=== PATIENT | female | born 1965 | race Caucasian/White ===

== ENCOUNTER 2024-03-16 09:13 | Inpatient (IN) | payer BC ==
--- NOTE | 2024-03-16 09:41 | ED ---
General Adult HPI - General Chief complaint: Neuro Symptoms/Deficit Stated complaint: Poss stroke Time Seen by Provider: 03/16/24 09:21 Source: patient, RN notes reviewed, old records reviewed Mode of arrival: wheelchair Limitations: no limitations - History of Present Illness Initial comments: 58-year-old female presenting for evaluation of unsteady gait, left hand numbness and slurred speech. Symptoms began at midnight when the patient woke to go to the bathroom. Patient presents at 915 to the emergency department. Her symptoms began with unsteady gait when she went to the bathroom. When she woke at 8 AM she had noticed that her vision was off and her states that she had some slurred speech which is improved but still present. No prior history of CVA. - Related Data Allergies Allergy/AdvReac Type Severity Reaction Status Date / Time Penicillins AdvReac Unknown Verified 03/16/24 09:21 Review of Systems ROS Statement: Those systems with pertinent positive or pertinent negative responses have been documented in the HPI. ROS Other: All systems not noted in ROS Statement are negative. Past Medical History Past Surgical History: Pacemaker Smoking Status: Never smoker Past Alcohol Use History: Occasional Past Drug Use History: None Reported General Exam Limitations: no limitations General appearance: alert, in no apparent distress Head exam: Present: atraumatic, normocephalic Eye exam: Present: PERRL, nystagmus (Vertical) Respiratory exam: Present: normal lung sounds bilaterally. Absent: respiratory distress Cardiovascular Exam: Present: regular rate, normal rhythm GI/Abdominal exam: Present: soft. Absent: distended, tenderness Extremities exam: Present: normal inspection, normal capillary refill Neurological exam: Present: alert, oriented X3, motor sensory deficit (Patient has mild dysarthria, she has left hand numbness, left upper extremity ataxia with finger-nose testing, left lower extremity ataxia with [id number].), other (NIH of 4) Psychiatric exam: Present: anxious Skin exam: Present: warm, dry, intact. Absent: cyanosis, diaphoretic Course Vital Signs 03/16/24 03/16/24 03/16/24 09:18 09:45 10:00 Temperature 98.5 F Pulse Rate 89 Respiratory 18 20 Rate Blood Pressure 155/101 156/91 173/97 O2 Sat by Pulse 97 Oximetry 03/16/24 10:11 Temperature Pulse Rate 83 Respiratory 20 Rate Blood Pressure 148/98 O2 Sat by Pulse 97 Oximetry Medical Decision Making - Medical Decision Making Was pt. sent in by a medical professional or institution (, [facility], [employer], urgent care, hospital, or senior living...) When possible be specific @ -No Did you speak to anyone other than the patient for history (EMS, parent, family, police, friend...)? What history was obtained from this source @ -No Did you review nursing and triage notes (agree or disagree)? Why? @ -I reviewed and agree with nursing and triage notes Were old charts reviewed (outside hosp., previous admission, EMS record, old EKG, old radiological studies, urgent care reports/EKG's, senior living records)? Report findings @ -No old charts were reviewed Differential CVA Ischemic stroke, hemorrhagic stroke, brain tumor, atypical migraine, Wernicke's encephalopathy, seizure, multiple sclerosis, meningitis, encephalitis, hypoglycemia, Guillain-Rock, electrolytes disturbance, myasthenia gravis.... This is not meant to be an all-inclusive list EKG interpreted by me (3pts min.). @ -EKG: Ventricular rate of 82, SC interval 279, QRS duration 140, QTc 442 ventricular pacer spikes X-rays interpreted by me (1pt min.). @ -Chest x-ray, no acute cardiopulmonary findings CT interpreted by me (1pt min.). @CT brain showing old lacunar infarct without intracranial hemorrhage or mass effect. CT angiography negative for acute stenosis or occlusion U/S interpreted by me (1pt. min.). @ -None done What testing was considered but not performed or refused? (CT, X-rays, U/S, labs)? Why? @ -None What meds were considered but not given or refused? Why? @ -None Did you discuss the management of the patient with other professionals (professionals i.e. , [facility], [employer], lab, RT, psych nurse, director social welfare, corn picker, teacher, budget officer, case assembler)? Give summary @ -Case discussed with Dr. Steinberg, at 0947, recommends aspirin, Brilinta, and statin. No tPA due to onset timing. No intervention due to low NIH. Case discussed with [facility], will admit Was smoking cessation discussed for >3mins.? @ -No Was critical care preformed (if so, how long)? @ -Yes, 35 minutes Were there social determinants of health that impacted care today? How? (Homelessness, low income, unemployed, alcoholism, drug addiction, transportation, low edu. Level, literacy, decrease access to med. care, intermediate, rehab)? @ -No Was there de-escalation of care discussed even if they declined (Discuss DNR or withdrawal of care, Hospice)? DNR status @ -No What co-morbidities impacted this encounter? (DM, HTN, Smoking, COPD, CAD, Cancer, CVA, ARF, Chemo, Hep., AIDS, mental health diagnosis, sleep apnea, morbid obesity)? @ -None Was patient admitted / discharged? Hospital course, mention meds given and route, prescriptions, significant lab abnormalities, going to OR and other pertinent info. @ -58-year-old female presenting with gait instability, vertical nystagmus, left arm numbness and ataxia, left leg ataxia. Initial NIH is 4. Patient is managed as a code stroke activation. She has normal laboratory testing. CT and CT angiography are ordered. Patient started on aspirin, Brilinta, statin. Admitted for further evaluation of acute stroke with neurology on consult. Undiagnosed new problem with uncertain prognosis? @ -No Drug Therapy requiring intensive monitoring for toxicity (Heparin, Nitro, Insulin, Cardizem)? @ -No Were any procedures done? @ -No Diagnosis/symptom? @ -CVA Acute, or Chronic, or Acute on Chronic? @Acute Uncomplicated (without systemic symptoms) or Complicated (systemic symptoms)? @ -Default Side effects of treatment? @ -No Exacerbation, Progression, or Severe Exacerbation? @ -No Poses a threat to life or bodily function? How? (Chest pain, USA, LA, pneumonia, PE, COPD, DKA, ARF, appy, cholecystitis, CVA, Diverticulitis, Homicidal, Suicidal, threat to staff... and all critical care pts) @ -[Yes, CVA - Lab Data Result diagrams: 03/16/24 09:44 03/16/24 09:44 Lab Results 03/16/24 03/16/24 03/16/24 Range/Units 09:44 09:44 09:44 WBC 10.7 H (3.8-10.6) k/uL RBC 5.16 (3.80-5.40) m/uL Hgb 14.3 (11.4-16.0) gm/dL Hct 45.9 (34.0-46.0) % MCV 89.0 (80.0-100.0) fL MCH 27.8 (25.0-35.0) pg MCHC 31.2 (31.0-37.0) g/dL RDW 13.8 (11.5-15.5) % Plt Count 484 H (150-450) k/uL MPV 7.4 Neutrophils % 71 % Lymphocytes % 17 % Monocytes % 6 % Eosinophils % 4 % Basophils % 1 % Neutrophils # 7.6 (1.3-7.7) k/uL Lymphocytes # 1.8 (1.0-4.8) k/uL Monocytes # 0.7 (0-1.0) k/uL Eosinophils # 0.4 (0-0.7) k/uL Basophils # 0.1 (0-0.2) k/uL PT 10.8 (10.0-12.5) sec INR 1.0 (<1.2) APTT 25.4 (22.0-30.0) sec Sodium 135 L (137-145) mmol/L Potassium 4.2 (3.5-5.1) mmol/L Chloride 105 (98-107) mmol/L Carbon Dioxide 26 (22-30) mmol/L Anion Gap 4 mmol/L BUN 13 (7-17) mg/dL Creatinine 0.76 (0.52-1.04) mg/dL Est GFR (CKD-EPI)AfAm >90 (>60 ml/min/1.73 sqM) Est GFR (CKD-EPI)NonAf 86 (>60 ml/min/1.73 sqM) Glucose 117 H (74-99) mg/dL Calcium 9.1 (8.4-10.2) mg/dL Total Bilirubin 0.7 (0.2-1.3) mg/dL AST 25 (14-36) U/L ALT 13 (4-34) U/L Alkaline Phosphatase 66 (38-126) U/L Creatine Kinase 35 (30-135) U/L Troponin I (0.000-0.034) ng/mL Total Protein 7.0 (6.3-8.2) g/dL Albumin 3.9 (3.5-5.0) g/dL 03/16/24 Range/Units 09:44 WBC (3.8-10.6) k/uL RBC (3.80-5.40) m/uL Hgb (11.4-16.0) gm/dL Hct (34.0-46.0) % MCV (80.0-100.0) fL MCH (25.0-35.0) pg MCHC (31.0-37.0) g/dL RDW (11.5-15.5) % Plt Count (150-450) k/uL MPV Neutrophils % % Lymphocytes % % Monocytes % % Eosinophils % % Basophils % % Neutrophils # (1.3-7.7) k/uL Lymphocytes # (1.0-4.8) k/uL Monocytes # (0-1.0) k/uL Eosinophils # (0-0.7) k/uL Basophils # (0-0.2) k/uL PT (10.0-12.5) sec INR (<1.2) APTT (22.0-30.0) sec Sodium (137-145) mmol/L Potassium (3.5-5.1) mmol/L Chloride (98-107) mmol/L Carbon Dioxide (22-30) mmol/L Anion Gap mmol/L BUN (7-17) mg/dL Creatinine (0.52-1.04) mg/dL Est GFR (CKD-EPI)AfAm (>60 ml/min/1.73 sqM) Est GFR (CKD-EPI)NonAf (>60 ml/min/1.73 sqM) Glucose (74-99) mg/dL Calcium (8.4-10.2) mg/dL Total Bilirubin (0.2-1.3) mg/dL AST (14-36) U/L ALT (4-34) U/L Alkaline Phosphatase (38-126) U/L Creatine Kinase (30-135) U/L Troponin I <0.012 (0.000-0.034) ng/mL Total Protein (6.3-8.2) g/dL Albumin (3.5-5.0) g/dL Critical Care Time Critical Care Time: Yes Total Critical Care Time: 35 Disposition Clinical Impression: Cerebrovascular accident (CVA) Disposition: ADMITTED IP TO THIS HOSP Condition: Stable Is patient prescribed a controlled substance at d/c from ED?: No Referrals: None,Stated [Primary Care Provider] - 1-2 days Time of Disposition: 10:43
[2024-03-16 09:58] LABS: Basophils # (A) 0.1 k/uL (0-0.2); Basophils % (A) 1 %; Eosinophils # (A) 0.4 k/uL (0-0.7); Eosinophils % (A) 4 %; HCT 45.9 % (34.0-46.0); HGB 14.3 gm/dL (11.4-16.0); Lymphocytes # (A) 1.8 k/uL (1.0-4.8); Lymphocytes % (A) 17 %; MCH 27.8 pg (25.0-35.0); MCHC 31.2 g/dL (31.0-37.0); Mean Platelet Volume 7.4; Monocytes # (A) 0.7 k/uL (0-1.0); Monocytes % (A) 6 %; Neutrophils # (A) 7.6 k/uL (1.3-7.7); Neutrophils % (A) 71 %; Platelet Count 484 k/uL (150-450); RBC 5.16 m/uL (3.80-5.40); RDW 13.8 % (11.5-15.5); WBC 10.7 k/uL (3.8-10.6)
[2024-03-16 10:03] LABS: Partial Thromboplastin Time 25.4 sec (22.0-30.0); Prothrombin Time 10.8 sec (10.0-12.5)
[2024-03-16 10:04] LABS: ALT 13 U/L (4-34); AST 25 U/L (14-36); African American GFR (CKD) >90 (>60 ml/min/1.73 sqM); Albumin 3.9 g/dL (3.5-5.0); Alkaline Phosphatase 66 U/L (38-126); Anion Gap 4 mmol/L; Blood Urea Nitrogen 13 mg/dL (7-17); Calcium 9.1 mg/dL (8.4-10.2); Carbon Dioxide 26 mmol/L (22-30); Chloride 105 mmol/L (98-107); Creatine Kinase 35 U/L (30-135); Glucose 117 mg/dL (74-99); Non-African American GFR(CKD) 86 (>60 ml/min/1.73 sqM); Potassium 4.2 mmol/L (3.5-5.1); Sodium 135 mmol/L (137-145); Total Bilirubin 0.7 mg/dL (0.2-1.3)
--- NOTE | 2024-03-16 10:09 | CT ---
EXAMINATION TYPE: CT brain wo con DATE OF EXAM: 03/16/2024 COMPARISON: None HISTORY: [id number] female unsteady gait, left side tingle and dysphagia TECHNIQUE: Examination was done in axial plane without intravenous contrast. Coronal and sagittal r econstructions performed. CT DLP: 1142.6 mGycm Automated exposure control for dose reduction was used. FINDINGS: There is no evidence of acute intracranial hemorrhage, acute ischemic changes, mass, mass-effect, or extra-axial fluid collection. There is no effacement of cerebral sulci or basal subarachnoid cister ns. There is no hydrocephalus. There is no midline shift. Ruiz-white matter distinction is preserv ed. Old lacunar infarct left basal ganglia. Partially empty sella incidentally noted. Some frothy layering fluid left maxillary sinus. Moderate mucosal thickening anterior right ethmoid a ir cells. Some frothy dependent opacification left sphenoid sinus. Mastoid air cells well pneumatized . Orbits and globes are intact. Normal variation hyperostosis frontalis interna. IMPRESSION: 1. Old lacunar infarct left basal ganglia. No acute intracranial abnormality seen. 2. Possible acute left maxillary and left sphenoid sinusitis. Correlate with symptoms.
--- NOTE | 2024-03-16 10:16 | CT ---
EXAMINATION TYPE: CT angio head neck DATE OF EXAM: 03/16/2024 COMPARISON: None HISTORY: 58-year-old female unsteady gait, left side tingle and dysphagia TECHNIQUE: Contiguous axial scanning of the head and neck performed with IV Contrast, patient injecte d with 65ml mL of Isovue 370. Coronal/sagittal reconstructions performed. 3-D reconstructions generat ed on a dedicated independent workstation. CT DLP: 616.2 mGycm Automated exposure control for dose reduction was used. FINDINGS: Neck: Partially visualized bilateral breast prostheses. Some pleural parenchymal scarring noted along the p eriphery of the right upper lung. Left anterior chest wall pacemaker generator. Bovine configuration to the aortic arch along with an aberrant direct takeoff of the left vertebral a rtery directly from the aortic arch. The right vertebral artery is dominant. Otherwise, both vertebral arteries are patent throughout the course. There is minimal atherosclerotic change at the right carotid bifurcation but no significant narrowing of the common or internal carotid arteries on either side by NASCET criteria. Head: Dominant right vertebral artery. Both vertebral and basilar arteries as well as the remainder of the posterior circulation is patent. Minimal prostatic calcifications of the bilateral carotid siphons but without any significant narrowi ng. Remainder of the anterior circulation is patent. No aneurysmal changes seen. Dural venous sinuses are patent. IMPRESSION: 1. NECK: WIDELY PATENT VERTEBRAL AND CAROTID ARTERIES OF THE NECK. 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 2. HEAD: No large vessel intracranial arterial occlusion, significant stenosis, or aneurysmal change is seen.
--- NOTE | 2024-03-16 10:32 | XR ---
EXAMINATION TYPE: XR chest 2V DATE OF EXAM: 03/16/2024 COMPARISON: None INDICATION: Altered mental status TECHNIQUE: Frontal and lateral views of the chest are obtained. FINDINGS: The heart size is normal. As maker overlies the left chest. The pulmonary vasculature is normal. The lungs are clear. IMPRESSION: 1. No acute pulmonary process.
[2024-03-16] MEDS: ASPIRIN 325 MG TAB PO STA (11:00)
[2024-03-16] MEDS ORDERED: CALCIUM CARBONATE 500 MG CHEWABLE PO PRN (13:16)
--- NOTE | 2024-03-16 14:00 | HP ---
HISTORY AND PHYSICAL CHIEF COMPLAINT: Weakness and unsteady gait, left hand numbness, slurred speech, and eye problems. HISTORY OF PRESENT ILLNESS: This is a 58-year-old woman with a past medical history of pacemaker, has recently moved to the area. The patient is complaining of unsteady gait and left hand numbness and slurred speech this morning, started midnight and the patient came to [facility], admitted for further evaluation and treatment. The patient had significant opsoclonus and is being admitted for further evaluation and treatment. Neurology consultation in progress. The initial evaluation, which I reviewed showed WBC 10.7, otherwise CAT scan of the brain showed old lacunar infarct of the left basal ganglia and possible left acute maxillary sinusitis also. CT angiography again, which was reviewed personally by me showed widely patent multiple carotid arteries, variant anatomy of aortic arch was noted. There is no history of any fever, rigors, or chills. PAST MEDICAL HISTORY: Pacemaker. HOME MEDICATIONS: Claritin, dose and rest of medications reviewed. ALLERGIES: Penicillin. FAMILY HISTORY: No history of heart disease or strokes in the family. SOCIAL HISTORY: Occasional alcohol. REVIEW OF SYSTEMS: A 14-point review is negative except as mentioned earlier. PHYSICAL EXAMINATION: VITAL SIGNS: Pulse is 72, blood pressure n, respirations 20. HEENT: Conjunctivae normal, otherwise opsoclonus as mentioned earlier, possible nystagmus. Otherwise eye movements are full , no diplopia noted. Oral mucosa is moist. NECK: No JVD. CARDIOVASCULAR: S1, S2. RESPIRATIONS: Clear to auscultation. ABDOMEN: Soft, nontender. LEGS: No edema, no swelling. NERVOUS SYSTEM: No focal deficits. No signs of cerebellar dysfunction. No finger- nose incoordination, otherwise opsoclonus as mentioned earlier. SKIN: No ulcer, rash, bleeding. JOINTS: No active deforming arthropathy. LABORATORY DATA: Reviewed. EKG, right bundle-branch block. ASSESSMENT: 1. Unsteady gait, left hand numbness, slurred speech, and vision difficulties, possible acute TIA or acute stroke. 2. Opsoclonus. 3. Old lacunar infarct of the left basal ganglia. 4. Pacemaker. 5. Hypertension. RECOMMENDATIONS AND DISCUSSION: This 58-year-old woman presented with multiple complex medical issues, we will monitor the patient closely. Continue current management and continue symptomatic treatment. Otherwise, neuro checks, full neurovascular evaluation, neurology consultation. I would also recommend MRI with contrast. Otherwise, antiplatelet agents. We will monitor closely. 2D echo with Doppler. The EKG which I reviewed personally showed right bundle-branch block. I would also obtain a cardiology consultation as well. Further recommendations to follow. ROBBIE / ADRIAN: [id number] / MTDD
--- NOTE | 2024-03-16 15:37 | P.CNNES ---
History of Present Illness Consult date: 03/16/24 Requesting physician: Aleks Larios Reason for Consult: CVA History of Present Illness: Patient is a 58-year-old right-handed female with history of hypertension came to the hospital today at 9:13 AM for acute onset of neurological symptoms. Patient states that lately she has been feeling very tired. She used to sleep late night, but lately has been sleeping between 7 to 9 PM. Last night she was feeling tired, went to bed before 9 PM. She woke up at around midnight and wanted to go to the bathroom and felt was having hard time keeping the balance. She came back to the bed. She woke up fine in the morning, but as soon as she opened her eyes, the room started scrolling. She waited to see his if symptoms would subside, but was not getting better. She also noticed numbness of the left hand. She also noticed that the words were not coming out right while speaking. She went to the bathroom, and has hard time keeping up the balance. She got dressed, came downstairs holding to the railing and onto the things. Her brought her to the hospital. Vital signs on arrival blood pressure 155/101, which improved to 156/91, pulse rate 89 temperature 98.5. Blood test shows WBC 10.7 hemoglobin 14.3, platelets 484. PT PTT normal, sodium 135, other electrolytes, renal and hepatic panel normal CK and troponin normal. EKG shows sinus rhythm with first-degree AV block. CT head revealed old lacunar infarct left basal ganglia. No acute intracranial process. Possible acute left maxillary and left sphenoid sinusitis. Correlate with symptoms. I personally reviewed CT head and agree with the findings. Chest x-ray showed no acute process. Stroke code was activated in the ER. Patient's NIH stroke scale was 4. Patient was not a candidate for tPA, as patient came outside the window for tPA. Dr. Steinberg recommended patient to be started on Brilinta and aspirin and statin. Patient states that 2 nights ago (24 hours prior to her current symptoms) she remembers that she was posting messages and did not remember what she posted. It was "not off" but not typical which she would post. At present patient states that when she opens her eyes, everything starts scrolling. The numbness and tingling of the left hand is slightly more intense. She noticed some pain in the back of the hand. She feels very imbalanced. Very tired and sleepy. Patient has history of hypertension since before COVID, but not being treated. Denies diabetes. She has never smoked. She drinks 1-2 drinks of vodka every night. She used to drink much more when she was younger. No marijuana use. Home medications include calcium, Pepcid and Claritin. Patient does not take any antiplatelet medication at home. Patient has history of reflux. Patient has a permanent pacemaker. Review of Systems Constitutional: Denies chills, Denies fever Eyes: denies blurred vision, denies decreased vision, denies diplopia, denies pain, denies loss of vision Ears: bilateral: tinnitus, deny: decreased hearing, earache Ears, nose, mouth and throat: Reports vertigo, Denies headache (Soeitmes feels pain in head short lasting) Cardiovascular: Denies chest pain, Denies shortness of breath Respiratory: Reports cough, Reports excessive sputum Gastrointestinal: Denies abdominal pain, Denies diarrhea, Denies nausea, Denies vomiting Genitourinary: Reports stress incontinence, Denies dysuria, Denies nocturia, Denies urge incontinence Musculoskeletal: Denies low back pain, Denies neck pain Integumentary: Denies pruritus, Denies rash Neurological: Reports as per HPI Psychiatric: Denies anxiety, Denies depression Hematologic/Lymphatic: Denies easy bleeding, Denies easy bruising Past Medical History Past Surgical History: Pacemaker Smoking Status: Never smoker Past Alcohol Use History: Occasional Past Drug Use History: None Reported Medications and Allergies Home Medications Medication Instructions Recorded Confirmed Type Calcium Carbonate [Tums] 500 mg PO TID PRN 03/16/24 03/16/24 History Famotidine [Pepcid] 20 mg PO BID 03/16/24 03/16/24 History Loratadine [Claritin] 10 mg PO DAILY 03/16/24 03/16/24 History Allergies Allergy/AdvReac Type Severity Reaction Status Date / Time Penicillins AdvReac Rash/Hives Verified 03/16/24 10:54 Physical Examination - Vital Signs Vital Signs: Vital Signs Temp Pulse Resp BP Pulse Ox 03/16/24 11:00 79 20 155/105 97 03/16/24 10:45 77 20 153/109 97 03/16/24 10:30 75 20 143/101 98 03/16/24 10:15 81 20 151/101 97 03/16/24 10:11 83 20 148/98 97 03/16/24 10:00 173/97 03/16/24 09:45 20 156/91 03/16/24 09:18 98.5 F 89 18 155/101 97 Intake and Output 03/15/24 03/16/24 03/16/24 22:59 06:59 14:59 Other: Weight 99.79 kg Patient is a middle aged female, in no acute distress. Patient is keeping her eyes closed because of constant nystagmus in the primary gaze. Patient is alert awake oriented to time place and person. Speech and language functions are normal. Patient can name and repeat very well. No aphasia or dysarthria. Attention, concentration and fund of knowledge is adequate. On cranial nerve examination, pupils are equal, round and reacting to light, visual jackson are full on confrontation, with no neglect on double simultaneous stimulation. Extraocular muscles are intact however patient has very prominent upbeat nystagmus in primary gaze as well as in all gazes noticed very prominently. Face is symmetric, tongue protrudes to the midline. Palatal elevation and sensation normal, hearing and shoulder shrug normal, facial sensation normal. On muscle strength testing, there is no pronator drift and the strength is normal in arms and legs distally and proximally, except hip flexion which is 4+5-right, 5-left. Deep tendon reflexes are (right/left) biceps 2/2, brachioradialis 2/2, knees 1+/2, ankles 1+/2 and plantars are downgoing. Sensory to touch is equal with no neglect on double simultaneous stimulation. Cerebellar function showed very questionable tremulousness versus mild ataxia left upper extremity. Patient has very mild ataxia for inmo-te-ntmi testing on the left side. Tone and bulk of muscles normal. Gait deferred.. On general examination, there is no carotid bruit or murmur, S1-S2 audible. Chest is clear on consultation. Abdomen is soft nontender. No organomegaly, bowel sounds present. Peripheral pulses are present. No peripheral edema. Results - Laboratory Findings CBC and BMP: 03/16/24 09:44 03/16/24 09:44 Abnormal Lab Findings: Abnormal Labs 03/16/24 03/16/24 09:44 09:44 WBC 10.7 H Plt Count 484 H Sodium 135 L Glucose 117 H Assessment and Plan Assessment: * Acute onset of vertigo with nystagmus, left hand numbness. Rule out stroke/TIA versus vestibular dysfunction from sinusitis. Patient not a candidate for tPA, as she came outside the window for tPA. No large vessel occlusion noted. Current NIH stroke scale possible 2, related to ?left-sided ataxia. * Acute left maxillary and sphenoid sinuses noted on CT. * Hypertension * Mild to moderate alcohol consumption * Reflux Plan: Patient cannot have MRI of the brain because of presence of pacemaker. 2-D echo with bubble study to rule out PFO CTA head and neck showed: widely patent vertebral and carotid arteries of the neck. Variant anatomy of the aortic arch. CTA of head showed no large vessel intracranial arterial occlusion, significant stenosis or aneurysmal change. Patient has left maxillary and sphenoid sinusitis. Recommend starting antibiotic for acute sinusitis. Fasting a.m. lipid panel Hemoglobin A1c Thiamine, B12, folate Optimize control of blood pressure. Patient was not taking any antiplatelet medication at home. Neurointervention recommended dual antiplatelet medication with Brilinta and aspirin. Neuro checks every 2 hours. Telemetry monitoring rule out any arrhythmia PT, OT, speech therapy DVT prophylaxis: Heparin 5000 units subcu every 8 hours Neurology will continue to follow. Thank you for the consult.
[2024-03-16] MEDS: TICAGRELOR 90 MG TAB PO SCH (19:36)
[2024-03-16] MEDS: ATORVASTATIN 80 MG TAB PO SCH (19:36)
[2024-03-16] MEDS: HEPARIN SODIUM,PORCINE 5,000 UNIT/ML 1 ML VIAL SQ SCH (19:36)
--- NOTE | 2024-03-16 19:37 | US ---
EXAMINATION TYPE: US carotid duplex BILAT DATE OF EXAM: 03/16/2024 COMPARISON: NONE CLINICAL INDICATION: Female, 58 years old with history of stroke; vison disturbances TECHNIQUE: Carotid duplex ultrasound examination. Indirect Doppler criteria was utilized. FINDINGS: EXAM MEASUREMENTS: RIGHT: Peak Systolic Velocity (PSV) cm/sec ----- Right CCA: 61.2 ----- Right ICA: 68.0 ----- Right ECA: 63.6 ICA/CCA ratio: 1.1 RIGHT: End Diastole cm/sec ----- Right CCA: 15.5 ----- Right ICA: 24.1 ----- Right ECA: 9.8 LEFT: Peak Systolic Velocity (PSV) cm/sec ----- Left CCA: 57.1 ----- Left ICA: 73.5 ----- Left ECA: 40.6 ICA/CCA ratio: 1.3 LEFT: End Diastole cm/sec ----- Left CCA: 13.0 ----- Left ICA: 26.3 ----- Left ECA: 5.4 VERTEBRALS (direction of flow): Right Vertebral: Antegrade Left Vertebral: Antegrade Rhythm: Normal FINE ARTS MODEL NOTES: No significant stenosis, elevated ratios, or high velocities seen, mild plaque maritza at bulbs IMPRESSION: 1. Atheromatous plaquing without significant flow-limiting stenosis. Criteria for Assigning % of Stenosis / Diameter reduction (Estimation based on the indirect measurements of the internal carotid artery velocities (ICA PSV). 1. Normal (no stenosis)=ICA PSV < 125 cm/s: ratio < 2.0: ICA EDV<40 cm/s. 2. Less than 50% stenosis=ICA PSV < 125 cm/s: ratio < 2.0: ICA EDV<40 cm/s. 3. 50 to 69% stenosis=ICA PSV of 125 to 230 cm/s: ration 2.0 ? 4.0: ICA EDV 40-100 cm/s. 4. Greater than 70% stenosis to near occlusion= ICA PSV > 230 cm/s: ratio > 4.0: ICA EDV > 100 cm/s. 5. Near occlusion= ICA PSV velocities may be low or undetectable: variable ratio and ICA EDV. 6. Total occlusion=unable to detect flow.
[2024-03-17] MEDS: PANTOPRAZOLE 40 MG TABLET PO SCH (06:17)
[2024-03-17 09:23] LABS: Basophils # (A) 0.1 k/uL (0-0.2); Basophils % (A) 1 %; Eosinophils # (A) 0.3 k/uL (0-0.7); Eosinophils % (A) 3 %; HCT 42.7 % (34.0-46.0); HGB 13.3 gm/dL (11.4-16.0); Lymphocytes # (A) 1.5 k/uL (1.0-4.8); Lymphocytes % (A) 14 %; MCH 27.9 pg (25.0-35.0); MCHC 31.1 g/dL (31.0-37.0); MCV 89.7 fL (80.0-100.0); Mean Platelet Volume 7.4; Monocytes # (A) 0.8 k/uL (0-1.0); Monocytes % (A) 8 %; Neutrophils # (A) 7.7 k/uL (1.3-7.7); Neutrophils % (A) 74 %; Platelet Count 446 k/uL (150-450); RBC 4.76 m/uL (3.80-5.40); RDW 13.7 % (11.5-15.5); WBC 10.5 k/uL (3.8-10.6)
[2024-03-17 09:26] LABS: ALT 12 U/L (4-34); AST 20 U/L (14-36); African American GFR (CKD) >90 (>60 ml/min/1.73 sqM); Albumin 3.4 g/dL (3.5-5.0); Alkaline Phosphatase 60 U/L (38-126); Anion Gap 4 mmol/L; Blood Urea Nitrogen 11 mg/dL (7-17); Calcium 9.5 mg/dL (8.4-10.2); Carbon Dioxide 26 mmol/L (22-30); Chloride 103 mmol/L (98-107); Glucose 89 mg/dL (74-99); Non-African American GFR(CKD) 82 (>60 ml/min/1.73 sqM); Potassium 4.6 mmol/L (3.5-5.1); Sodium 133 mmol/L (137-145); Total Bilirubin 0.8 mg/dL (0.2-1.3); Total Protein 6.4 g/dL (6.3-8.2)
[2024-03-17 15:39] LABS: Chol/HDL Ratio 3.65 Ratio; LDL Cholesterol,Calculated 115.2 mg/dL (0.0-131.0); VLDL Calculation 17.68 mg/dL (5.00-40.00)
[2024-03-17] MEDS: ASPIRIN 81 MG PO STA (17:33)
[2024-03-17] MEDS: CYANOCOBALAMIN 1,000 MCG/ML 1 ML VIAL IM SCH (17:54)
--- NOTE | 2024-03-17 20:03 | P.CRDCN ---
History of Present Illness History of present illness: This is Dr. Smith dictating a consult on this patient The patient was interviewed and examined IMPRESSION / ASSESSMENT: CVA/TIA-like symptoms Dual-chamber pacemaker implanted at the [facility] about 2-1/2 years back probably for chronotropic incompetence, per her history History of hypertension Mild carotid atherosclerosis PLAN: Dual-chamber pacemaker interrogation look for episodes of atrial fibrillation. Patient states this is a Medtronic device 2D echo and Doppler study with bubble study Lipid panel The pacemaker implantation from the [facility]. Will review device interrogation to look for episodes of atrial fibrillation and the duration HPI Patient presented with vertigo-like symptoms and left arm numbness She was unable to articulate and speak clearly Presently she feels well and can give a full history. She has never felt any palpitations ROS: No fever chills or rigors, no cough, phlegm or expectoration, no nausea, vomiting or diarrhea, no hematuria, dysuria, no musculoskeletal complaints, no strokes or seizures, no skin lesions. EXAMINATION: Normal heart sounds regular No murmurs no gallop rub Breath sounds are clear REVIEW OF LABS, ECG & MEDICAL DATA Labs normal white count normal electrolytes Carotid ultrasound shows atheromatous plaquing without significant flow-limiting stenosis CTA confirms this with widely patent vertebral and carotid arteries Twelve-lead EKG shows sinus rhythm, prolonged VA interval 279 ms right bundle branch block pattern secondary ST-T abnormality Sodium 133 potassium 4.6 Kidney function normal Liver function normal LDL 115 HDL 50 TSH 1.0 normal Transfer text Past Medical History Past Medical History: No Reported History Additional Past Medical History / Comment(s): right wrist break, left ankle break History of Any Multi-Drug Resistant Organisms: None Reported Past Surgical History: Breast Surgery, Section, Orthopedic Surgery, Pacemaker Additional Past Surgical History / Comment(s): Breast implants; skin removal Past Anesthesia/Blood Transfusion Reactions: No Reported Reaction Type of Cardiac Device: Permanent Pacemaker Device Placement Date:: 2020 Past Psychological History: Anxiety, Depression Smoking Status: Never smoker Past Alcohol Use History: Daily Past Drug Use History: None Reported Medications and Allergies Home Medications Medication Instructions Recorded Confirmed Type Calcium Carbonate [Tums] 500 mg PO TID PRN 03/16/24 03/16/24 History Famotidine [Pepcid] 20 mg PO BID 03/16/24 03/16/24 History Loratadine [Claritin] 10 mg PO DAILY 03/16/24 03/16/24 History Allergies Allergy/AdvReac Type Severity Reaction Status Date / Time Penicillins AdvReac Rash/Hives Verified 03/16/24 10:54 Physical Exam Vitals: Vital Signs Temp Pulse Pulse Resp BP BP Pulse Ox 03/17/24 04:00 98.6 F 78 14 122/77 97 03/17/24 00:08 98.5 F 90 14 136/91 97 03/16/24 22:46 98.5 F 79 14 150/96 96 03/16/24 22:44 150/96 03/16/24 22:39 98.5 F 79 14 155/94 96 03/16/24 20:00 98.5 F 18 143/98 96 03/16/24 19:02 97.6 F 86 18 153/98 98 03/16/24 13:45 78 16 142/105 97 03/16/24 12:30 78 20 154/109 98 03/16/24 11:30 72 20 148/103 98 03/16/24 11:00 79 20 155/105 97 03/16/24 10:45 77 20 153/109 97 03/16/24 10:30 75 20 143/101 98 03/16/24 10:15 81 20 151/101 97 03/16/24 10:11 83 20 148/98 97 03/16/24 10:00 173/97 03/16/24 09:45 20 156/91 03/16/24 09:18 98.5 F 89 18 155/101 97 Intake and Output 03/16/24 03/17/24 03/17/24 22:59 06:59 14:59 Intake Total 0 Output Total 0 Balance 0 Intake: Oral 0 Output: Urine 0 Other: Voiding Method Toilet # Bowel Movements 0 Weight 99.79 kg Results 03/17/24 07:43 03/17/24 08:13 Cardiac Enzymes 03/16/24 03/16/24 Range/Units 09:44 09:44 AST 25 (14-36) U/L Troponin I <0.012 (0.000-0.034) ng/mL Coagulation 03/16/24 Range/Units 09:44 PT 10.8 (10.0-12.5) sec APTT 25.4 (22.0-30.0) sec CBC 03/16/24 Range/Units 09:44 WBC 10.7 H (3.8-10.6) k/uL RBC 5.16 (3.80-5.40) m/uL Hgb 14.3 (11.4-16.0) gm/dL Hct 45.9 (34.0-46.0) % Plt Count 484 H (150-450) k/uL Comprehensive Metabolic Panel 03/16/24 Range/Units 09:44 Sodium 135 L (137-145) mmol/L Potassium 4.2 (3.5-5.1) mmol/L Chloride 105 (98-107) mmol/L Carbon Dioxide 26 (22-30) mmol/L BUN 13 (7-17) mg/dL Creatinine 0.76 (0.52-1.04) mg/dL Glucose 117 H (74-99) mg/dL Calcium 9.1 (8.4-10.2) mg/dL AST 25 (14-36) U/L ALT 13 (4-34) U/L Alkaline Phosphatase 66 (38-126) U/L Total Protein 7.0 (6.3-8.2) g/dL Albumin 3.9 (3.5-5.0) g/dL Current Medications Generic Name Dose Route Start Last Admin Trade Name Freq PRN Reason Stop Dose Admin Acetaminophen 500 mg 03/16/24 13:16 Acetaminophen Tab 500 Mg Tab PO Q6HR PRN Fever and/ or Pain Aspirin 81 mg 03/18/24 09:00 Aspirin 81 Mg PO DAILY MILLA Atorvastatin Calcium 80 mg 03/16/24 21:00 03/16/24 19:36 Atorvastatin 80 Mg Tab PO 80 mg HS MILLA Administration Calcium Carbonate/Glycine 500 mg 03/16/24 13:16 Calcium Carbonate 500 Mg Chewable PO TID PRN GI Upset Heparin Sodium (Porcine) 5,000 unit 03/16/24 21:00 03/17/24 07:45 Heparin Sodium,Porcine 5,000 Unit/Ml 1 Ml Vial SQ 5,000 unit Q12HR MILLA Administration Pantoprazole Sodium 40 mg 03/17/24 07:30 03/17/24 06:17 Pantoprazole 40 Mg Tablet PO 40 mg [id number] MILLA Administration Ticagrelor 90 mg 03/16/24 21:00 03/17/24 07:45 Ticagrelor 90 Mg Tab PO 90 mg BID MILLA Administration Intake and Output 03/16/24 03/17/24 03/17/24 22:59 06:59 14:59 Intake Total 0 Output Total 0 Balance 0 Intake: Oral 0 Output: Urine 0 Other: Voiding Method Toilet # Bowel Movements 0 Weight 99.79 kg 03/16/24 09:44 03/16/24 09:44
[2024-03-17] MEDS: ATORVASTATIN 40 MG TAB PO SCH (20:25)
[2024-03-18] MEDS: ACETAMINOPHEN TAB 500 MG TAB PO PRN (00:35)
--- NOTE | 2024-03-18 01:22 | PN ---
PROGRESS NOTE DATE OF SERVICE: 03/17/2024 SUBJECTIVE: This is a 58-year-old woman, who was admitted with multiple symptomatology, is being closely monitored at this time. The patient had features of opsoclonus. There is no myoclonus, but the patient still has some gait dysfunction. PT/OT has evaluated the patient also. MRI could not be taken because of the patient's pacemaker. The patient was suspected to have ataxia also. PAST MEDICAL HISTORY: Reviewed. REVIEW OF SYSTEMS: Fourteen-point review is negative except as mentioned earlier. CURRENT MEDICATIONS: Reviewed include aspirin, Lipitor. PHYSICAL EXAMINATION: VITAL SIGNS: Pulse is 78, blood pressure 151/94, respirations 14. HEENT: Conjunctivae normal. NECK: No JVD. CARDIOVASCULAR: S1, S2. RESPIRATIONS: Breath sounds diminished at the bases. Scattered rhonchi and crackles. ABDOMEN: Soft. NERVOUS SYSTEM: Nonfocal. LABORATORY DATA: WBC 10.7. ASSESSMENT: 1. Unsteady gait, left-sided numbness, slurred speech and vision difficulties, possible acute transient ischemic attack, rule out acute stroke. 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 3. Old lacunar infarct in the left basal ganglia. 4. Pacemaker. 5. Hypertension. 6. Sinusitis in the CT scan. RECOMMENDATIONS: Recommend to continue current management. Continue with antiplatelet agents. Repeat labs. PT/OT evaluation. Closely follow with Neurology. The patient will require possibly outpatient MRI and empiric antibiotics for sinusitis. Further recommendations follow. MMODL / IJN: [id number] /
--- NOTE | 2024-03-18 08:06 | CT ---
EXAMINATION TYPE: CT brain wo con DATE OF EXAM: 03/18/2024 COMPARISON: 03/16/2024 INDICATION: Lt sided tingling, vertigo DLP: 1074.4 mGycm, Automated exposure control for dose reduction was used. CONTRAST: None CT of the brain is performed utilizing 3 mm thick sections through the posterior fossa and 3 mm thick sections through the remaining calvarium. Study is performed within 24 hours of arrival to the hosp [facility]. No abnormal hyperdensity is present to suggest an acute intracranial hemorrhage. No mass lesion is evident. No acute infarcts are evident. Has a normal hypodensity within the left medial basal ganglion likely an old lacunar infarct unchanged from comparison Ventricles and sulci are appropriate for the patient age. There is an air-fluid level within the left maxillary sinus. Remaining paranasal sinuses and mastoid air cells are clear. No significant interval change is evident. IMPRESSION: 1. No acute intracranial process. Follow-up MRI can be performed as clinically indicated
[2024-03-18] MEDS: ASPIRIN 81 MG PO SCH (08:48)
[2024-03-18 08:52] LABS: Basophils % (A) 0 %; Eosinophils # (A) 0.1 k/uL (0-0.7); Eosinophils % (A) 1 %; HCT 42.4 % (34.0-46.0); Lymphocytes # (A) 0.9 k/uL (1.0-4.8); Lymphocytes % (A) 8 %; MCH 27.9 pg (25.0-35.0); MCHC 30.6 g/dL (31.0-37.0); MCV 91.2 fL (80.0-100.0); Mean Platelet Volume 7.1; Monocytes # (A) 0.4 k/uL (0-1.0); Monocytes % (A) 3 %; Neutrophils # (A) 9.3 k/uL (1.3-7.7); Neutrophils % (A) 86 %; Platelet Count 392 k/uL (150-450); RBC 4.65 m/uL (3.80-5.40); RDW 13.8 % (11.5-15.5); WBC 10.8 k/uL (3.8-10.6)
[2024-03-18 09:14] LABS: ALT 14 U/L (4-34); AST 20 U/L (14-36); African American GFR (CKD) 86 (>60 ml/min/1.73 sqM); Albumin 3.5 g/dL (3.5-5.0); Alkaline Phosphatase 59 U/L (38-126); Anion Gap 5 mmol/L; Blood Urea Nitrogen 17 mg/dL (7-17); Calcium 9.2 mg/dL (8.4-10.2); Carbon Dioxide 22 mmol/L (22-30); Chloride 106 mmol/L (98-107); Glucose 163 mg/dL (74-99); Non-African American GFR(CKD) 74 (>60 ml/min/1.73 sqM); Potassium 4.5 mmol/L (3.5-5.1); Sodium 133 mmol/L (137-145); Total Bilirubin 0.4 mg/dL (0.2-1.3); Total Protein 6.4 g/dL (6.3-8.2)
--- NOTE | 2024-03-18 10:37 | CA ---
Transthoracic Echo Report Name: Kriss Farnsworth Age: 58 Gender: F : 1965 Exam Date: 03/17/2024 09:16 Exam Location: [facility] Ht (in): 67 Wt (lb): 220 Ordering Physician: Aleks Larios MD Attending/Referring Phys: [id number], Harriet Paper Machine Operator Rupali Ross RDCS Procedure CPT: Indications: Thrombus Cardiac Hx: Technical Quality: Technically difficult study Contrast 1: Definity Total Dose (mL): 2 Contrast 2: Total Dose (mL): MEASUREMENTS (Male / Female) Normal Values 2D ECHO LV Diastolic Diameter PLAX 3.1 cm 4.2 - 5.9 / 3.9 - 5.3 cm LV Systolic Diameter PLAX 2.0 cm IVS Diastolic Thickness 1.2 cm 0.6 - 1.0 / 0.6 - 0.9 cm LVPW Diastolic Thickness 1.1 cm 0.6 - 1.0 / 0.6 - 0.9 cm LV Relative Wall Thickness 0.7 LVOT Diameter 2.0 cm Aortic Root Diameter 3.0 cm LV Diastolic Volume MOD BP 92.3 cm??? 67 - 155 / 56 - 104 cm??? LV Systolic Volume MOD BP 31.1 cm??? 22 - 58 / 19 - 49 cm??? LV Ejection Fraction MOD BP 66.3 % >= 55 % LV Cardiac Index MOD BP 2546.6 cm???/min???m??? LV Diastolic Volume MOD 4C 85.8 cm??? LV Systolic Volume MOD 4C 31.7 cm??? LV Ejection Fraction MOD 4C 63.1 % LV Cardiac Index MOD 4C 2254.8 cm???/min???m??? LV Diastolic Length 4C 8.3 cm LV Systolic Length 4C 6.7 cm LV Diastolic Volume MOD 2C 98.6 cm??? LV Systolic Volume MOD 2C 29.5 cm??? LV Ejection Fraction MOD 2C 70.1 % LV Cardiac Index MOD 2C 2877.0 cm???/min???m??? LV Diastolic Length 2C 8.2 cm LV Systolic Length 2C 7.0 cm Ascending Aorta Diameter 3.3 cm DOPPLER AV Peak Velocity 144.0 cm/s AV Peak Gradient 8.3 mmHg AV Mean Velocity 95.4 cm/s AV Mean Gradient 4.2 mmHg AV Velocity Time Integral 22.2 cm LVOT Peak Velocity 99.3 cm/s LVOT Peak Gradient 3.9 mmHg LVOT Velocity Time Integral 17.3 cm LVOT Stroke Volume 56.4 cm??? LVOT Stroke Volume Index 26.8 ml/m??? LVOT Cardiac Index 2349.6 cm???/min???m??? AV Area Cont Eq vti 2.5 cm??? AV Area Cont Eq pk 2.3 cm??? MV Peak Velocity 139.8 cm/s MV Peak Gradient 7.8 mmHg MV Mean Velocity 80.2 cm/s MV Mean Gradient 3.1 mmHg MV Velocity Time Integral 23.5 cm TR Peak Velocity 235.4 cm/s TR Peak Gradient 22.2 mmHg PV Peak Velocity 80.9 cm/s PV Peak Gradient 2.6 mmHg FINDINGS Left Ventricle Left ventricular ejection fraction is estimated at 60-65 %. Mildly increased septal wall thickness. Mildly increased posterior wall thickness. Left ventricular cavity size normal. No obvious regional wall motion abnormalities. Right Ventricle Normal right ventricular size and function. Unable to estimate the right ventricular systolic pressure. Right Atrium Normal right atrial size. Left Atrium Normal left atrial size. Mitral Valve Mitral valve thickened. Mild mitral annular calcification. No evidence for mitral valve prolapse. Mild mitral stenosis. Trace mitral regurgitation. Aortic Valve Trileaflet aortic valve. No aortic valve stenosis or regurgitation. Tricuspid Valve Structurally normal tricuspid valve. No tricuspid stenosis. Mild tricuspid regurgitation. Pulmonic Valve Structurally normal pulmonic valve. No pulmonic stenosis. Trace pulmonic regurgitation. Pericardium No pericardial effusion. Aorta Normal size aortic root and proximal ascending aorta. CONCLUSIONS Normal LV size and systolic function. Minimal mitral and tricuspid regurgitation. No pulmonary hypertension. No pericardial effusion Previewed by: Dr. Zeynep Faulkner MD (Electronically Signed) Final Date: 18 Mar 2024 10:36
--- NOTE | 2024-03-18 11:16 | P.PN ---
Subjective Progress Note Date: 03/17/24 Patient was seen for a follow-up. Patient is sitting comfortably in recliner. She states that she is feeling better. Her scrolling visual disturbance has improved. Scrolling to the left has improved. When she is looking at the TV, after some time it stops crawling. Her walking has improved, and she still tends to lean to the left. She has not been walking by herself with a walker. No new numbness or tingling. Objective - Vital Signs Vital signs: Vital Signs Temp 98.4 F 03/17/24 15:22 Pulse 85 03/17/24 15:22 Resp 14 03/17/24 15:22 BP 121/81 03/17/24 15:22 Pulse Ox 100 03/17/24 15:22 FiO2 Intake & Output 03/16/24 03/17/24 03/17/24 18:59 06:59 18:59 Intake Total 0 720 Output Total 0 Balance 0 720 Weight 99.79 kg 99.79 kg Intake: Oral 0 720 Output: Urine 0 Other: Voiding Method Toilet Toilet # Voids 2 # Bowel Movements 0 - Exam Mental status, speech and language functions are normal. Cranial nerves significant for vertical nystagmus, which is present somewhat more in the primary gaze and looking up and down. It is not as prominent in the lateral gaze. Pupils are equal, round and reacting, visual jackson are full, face is symmetric. On muscle strength testing there is no pronator drift and the strength is normal in arms and legs. Patient is somewhat shaky for [id number] testing bilaterally. No definitive ataxia. - Labs CBC & Chem 7: 03/18/24 08:14 03/18/24 08:14 Labs: Abnormal Lab Results - Last 24 Hours (Table) 03/16/24 03/17/24 Range/Units 16:38 08:13 Sodium 133 L (137-145) mmol/L Albumin 3.4 L (3.5-5.0) g/dL Vitamin B12 198.0 L (200.0-944.0) pg/mL Assessment and Plan Assessment: * Acute onset of vertigo with upbeat nystagmus, left hand numbness. Rule out stroke/TIA versus vestibular dysfunction from sinusitis. Patient not a candidate for tPA, as she came outside the window for tPA. No large vessel occlusion noted. * Acute left maxillary and sphenoid sinuses noted on CT. * Hypertension * Mild to moderate alcohol consumption * Reflux Plan: Patient's vertigo, nystagmus has improved. She is not having any more nausea or vomiting. Patient cannot have MRI of the brain because of presence of pacemaker. Repeat CT head in the morning to evaluate for any evolving stroke. 2-D echo revealed normal left ventricular size and systolic function EF 60 to 65%. Mildly increased septal wall thickness. Mildly increased posterior wall thickness. No obvious regional wall motion abnormalities. Normal left atrial size. Minimal mitral and tricuspid regurgitation. No pulmonary hypertension CTA head and neck showed: widely patent vertebral and carotid arteries of the neck. Variant anatomy of the aortic arch. CTA of head showed no large vessel intracranial arterial occlusion, significant stenosis or aneurysmal change. Patient has left maxillary and sphenoid sinusitis. Patient on ceftriaxone. Fasting a.m. lipid panel cholesterol 183, LDL 115, HDL 50, triglycerides 88. Start Lipitor 40 mg daily. Hemoglobin A1c 5.4 Thiamine, B12 198, folate 8.2, TSH normal 0.96. Patient has vitamin B12 deficiency. Patient will be started on B12 injections. Patient's folic acid is also borderline, we will start folic acid 1 mg daily. Optimize control of blood pressure. Patient was not taking any antiplatelet medication at home. Neurointervention recommended dual antiplatelet medication with Brilinta and aspirin. Recommend aspirin and Brilinta for 30 days, then stop Brilinta and continue aspirin 81 mg indefinitely. Neuro checks every 2 hours. Telemetry monitoring rule out any arrhythmia PT, OT. Speech therapy has cleared. DVT prophylaxis: Heparin 5000 units subcu every 8 hours
--- NOTE | 2024-03-18 11:32 | P.PN ---
Subjective Patient is resting comfortably in bed She has myriad complaints with cold hands dizziness weakness in the left arm She feels she had sinusitis and the antibiotics have made it worse Denies any chest pain shortness of breath looks very comfortable On examination blood pressure 105/69 mmHg pulse rate in the 80s sinus mechanism afebrile Breath sounds are reduced bilaterally no rhonchi no crackles Heart sounds are normal Her Medtronic pacemaker was interrogated. Very brief episodes of atrial fibrillation noted mostly last year in August. Longest episode for 20 seconds No sustained episodes Impression Vertigo Left maxillary and sphenoid sinusitis No significant carotid disease. Widely patent vertebral and carotid arteries Vitamin B12 deficiency, borderline low folic acid Brief episodes of atrial fibrillation documented last year on her dual-chamber pacemaker, Medtronic, longest episode for 20 seconds or so Hemoglobin A1c 5.4 Suggest anticoagulation not recommended Follow neurology instructions regarding antiplatelet therapy Continue statins 6 monthly pacemaker follow-up Objective - Vital Signs Vital signs: Vital Signs Temp 98.1 F 03/18/24 08:10 Pulse 75 03/18/24 08:10 Resp 16 03/18/24 08:10 BP 105/69 03/18/24 08:10 Pulse Ox 97 03/18/24 08:10 FiO2 Intake & Output 03/17/24 03/18/24 03/18/24 18:59 06:59 18:59 Intake Total 900 10 180 Balance 900 10 180 Intake: IV 10 0.9 10 Oral 900 180 Other: Voiding Method Toilet Toilet Toilet # Voids 2 1 - Labs CBC & Chem 7: 03/18/24 08:14 03/18/24 08:14 Labs: Abnormal Lab Results - Last 24 Hours (Table) 03/17/24 03/18/24 03/18/24 Range/Units 15:13 08:14 08:14 WBC 10.8 H (3.8-10.6) k/uL MCHC 30.6 L (31.0-37.0) g/dL Neutrophils # 9.3 H (1.3-7.7) k/uL Lymphocytes # 0.9 L (1.0-4.8) k/uL ESR 47 H (0-30) mm/Hr Sodium 133 L (137-145) mmol/L Glucose 163 H (74-99) mg/dL
[2024-03-18] MEDS: THIAMINE 100 MG TAB PO SCH (12:00)
[2024-03-18] MEDS: FOLIC ACID 1 MG TAB PO SCH (12:00)
[2024-03-18 12:53] LABS: Rheumatoid Factor, Qnt <15 IU/mL (0-15)
--- NOTE | 2024-03-18 23:35 | PN ---
PROGRESS NOTE DATE OF SERVICE: 03/18/2024 SUBJECTIVE: This is a 58-year-old woman, who was admitted with unsteady gait and left-sided numbness, also had eye movement abnormalities. MRI could not be done. The patient is complaining of weakness and tiredness today. Repeat CT scan showed no acute abnormality. The patient also on empiric antibiotics for possible sinusitis also. A very brief episode of atrial fibrillation noted last year in August. PAST MEDICAL HISTORY: Reviewed. REVIEW OF SYSTEMS: Fourteen-point review is negative except as mentioned earlier. CURRENT MEDICATIONS: Reviewed. PHYSICAL EXAMINATION: VITAL SIGNS: Pulse 64, blood pressure 130/62, respirations 16. HEENT: Conjunctivae normal. CARDIOVASCULAR: S1, S2. RESPIRATIONS: Breath sounds diminished at the bases. ABDOMEN: Soft. NERVOUS SYSTEM: Abnormal eye movements persist and some gait dysfunction, incoordination. LABORATORY DATA: Sedimentation rate is 47. Rheumatoid factor is negative. ASSESSMENT: 1. Unsteady gait, left-sided numbness, slurred speech and vision difficulties, possible acute transient ischemic attack, rule out acute stroke. 2. 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 3. Old lacunar infarct of the left basal ganglia. 4. Pacemaker. 5. Very brief episodes of atrial fibrillation last year and pacemaker interrogation. 6. Hypertension. 7. Sinuses in the CT scan, on empiric antibiotics. RECOMMENDATIONS AND DISCUSSION: I would recommend to continue current management and continue symptomatic treatment. Otherwise, repeat labs. Increase ambulation. PT, OT evaluation. Closely follow with Neurology. Guarded prognosis. Further recommendations to follow. MMODL / IJN: [id number] /
[2024-03-19] MEDS ORDERED: ARTIFICIAL TEARS-HYPROMELLOSE DROPS 15 ML BTL BOTH EYES PRN (07:54)
[2024-03-19 08:11] LABS: Basophils % (A) 0 %; Eosinophils # (A) 0.3 k/uL (0-0.7); Eosinophils % (A) 3 %; HCT 41.5 % (34.0-46.0); HGB 13.1 gm/dL (11.4-16.0); Lymphocytes # (A) 1.8 k/uL (1.0-4.8); Lymphocytes % (A) 18 %; MCH 28.3 pg (25.0-35.0); MCHC 31.5 g/dL (31.0-37.0); MCV 89.8 fL (80.0-100.0); Mean Platelet Volume 7.4; Monocytes # (A) 0.7 k/uL (0-1.0); Monocytes % (A) 7 %; Neutrophils # (A) 7.1 k/uL (1.3-7.7); Neutrophils % (A) 71 %; Platelet Count 423 k/uL (150-450); RBC 4.62 m/uL (3.80-5.40); RDW 13.8 % (11.5-15.5); WBC 10.1 k/uL (3.8-10.6)
[2024-03-19 08:24] LABS: African American GFR (CKD) >90 (>60 ml/min/1.73 sqM); Anion Gap 3 mmol/L; Blood Urea Nitrogen 13 mg/dL (7-17); Calcium 9.3 mg/dL (8.4-10.2); Carbon Dioxide 23 mmol/L (22-30); Chloride 109 mmol/L (98-107); Glucose 90 mg/dL (74-99); Non-African American GFR(CKD) >90 (>60 ml/min/1.73 sqM); Potassium 4.5 mmol/L (3.5-5.1); Sodium 135 mmol/L (137-145)
--- NOTE | 2024-03-19 11:34 | P.CONS ---
History of Present Illness - Reason for Consult Consult date: 03/18/24 - Chief Complaint Rehab needs - History of Present Illness The patient is a 58-year-old female who presented to the ED with unsteadiness and left hand numbness as well as slurred speech. She lives with her in a multi level home with ~14 stairs to get to main bed/bath. SHe was previously independent and not using any AD for ambulation. In the ER, EKG shows sinus rhythm with first-degree AV block. CT head revealed old lacunar infarct left basal ganglia. No acute intracranial process. Possible acute left maxillary and left sphenoid sinusitis. Stroke code was activated in the ER. Patient's NIH stroke scale was 4. Patient was not a candidate for tPA, as patient came outside the window for tPA. Dr. Steinberg recommended patient to be started on Brilinta and aspirin and statin. PMR consulted for possible IPR consideration and rehab needs. Past Medical History Past Medical History: No Reported History Additional Past Medical History / Comment(s): right wrist break, left ankle br eak History of Any Multi-Drug Resistant Organisms: None Reported Past Surgical History: Breast Surgery, Section, Orthopedic Surgery, Pacemaker Additional Past Surgical History / Comment(s): Breast implants; skin removal Past Anesthesia/Blood Transfusion Reactions: No Reported Reaction Type of Cardiac Device: Permanent Pacemaker Device Placement Date:: 2020 Past Psychological History: Anxiety, Depression Smoking Status: Never smoker Past Alcohol Use History: Daily Past Drug Use History: None Reported Medications and Allergies Home Medications Medication Instructions Recorded Confirmed Type Calcium Carbonate [Tums] 500 mg PO TID PRN 03/16/24 03/16/24 History Famotidine [Pepcid] 20 mg PO BID 03/16/24 03/16/24 History Loratadine [Claritin] 10 mg PO DAILY 03/16/24 03/16/24 History Allergies Allergy/AdvReac Type Severity Reaction Status Date / Time Penicillins AdvReac Rash/Hives Verified 03/16/24 10:54 Physical Exam Vitals: Vital Signs Temp Pulse Pulse Resp BP BP Pulse Ox 03/18/24 11:03 98.0 F 64 16 113/60 97 03/18/24 11:00 64 16 113/60 03/18/24 08:10 98.1 F 75 16 105/69 97 03/18/24 03:37 98.3 F 65 18 94/59 96 03/18/24 02:00 85 18 03/17/24 23:30 98.0 F 85 18 105/67 94 L 03/17/24 20:00 98.4 F 84 18 131/89 96 03/17/24 15:22 98.4 F 85 14 121/81 100 Intake and Output 03/17/24 03/18/24 03/18/24 22:59 06:59 14:59 Intake Total 430 180 Balance 430 180 Intake: IV 10 0.9 10 Oral 420 180 Other: Voiding Method Toilet Toilet Toilet # Voids 1 1 2 General: Well appearing, well nourished, in no distress. Head: Normocephalic, atraumatic Eyes: EOM intact, + nystagmus with left lateral gaze Skin: No rash, or skin lesion in exposed areas of skin CV:No cyanosis or peripheral edema Respiratory: No audible wheezing or increased respiratory effort Abdomen: Non-distended and without guarding. Extremities:No cyanosis or edema, dorsalis pedis pulses intact b/l Musculoskeletal:Gait: 5/5 b/l upper and lower extremities, FtoN WNL, ALAINA WNL Psychiatric: normal mood and affect. Results CBC & Chem 7: 03/19/24 07:10 03/19/24 07:10 Labs: Abnormal Lab Results - Last 24 Hours (Table) 03/17/24 03/17/24 03/18/24 Range/Units 08:13 15:13 08:14 WBC 10.8 H (3.8-10.6) k/uL MCHC 30.6 L (31.0-37.0) g/dL Neutrophils # 9.3 H (1.3-7.7) k/uL Lymphocytes # 0.9 L (1.0-4.8) k/uL ESR 47 H (0-30) mm/Hr Sodium (137-145) mmol/L Glucose (74-99) mg/dL C-Reactive Protein 1.30 H (0.00-0.80) mg/dL 03/18/24 Range/Units 08:14 WBC (3.8-10.6) k/uL MCHC (31.0-37.0) g/dL Neutrophils # (1.3-7.7) k/uL Lymphocytes # (1.0-4.8) k/uL ESR (0-30) mm/Hr Sodium 133 L (137-145) mmol/L Glucose 163 H (74-99) mg/dL C-Reactive Protein (0.00-0.80) mg/dL Assessment and Plan Assessment: Ataxia and visual disturances, secondary to vertigo vs cva PT / OT have evaluated the patient. She is below baseline function. She is ataxic, unsteady gait due to dizziness. Needed min assist to maintain balance. Only able to ambulate 24 feet before needing to sit due to worsening dizziness and unsteadiness Recommend short course of IPR as she is fall risk. Patient cannot have MRI of the brain because of presence of pacemaker. Repeat CT head negative 2-D echonormal WNL CTA head and neck showed: widely patent vertebral and carotid arteries of the neck. Variant anatomy of the aortic arch. CTA of head showed no large vessel intracranial arterial occlusion, significant stenosis or aneurysmal change. Patient has left maxillary and sphenoid sinusitis. Patient on ceftriaxone for sinus infection. Neurointervention recommend aspirin and Brilinta for 30 days, then stop Brilinta and continue aspirin 81 mg indefinitely. If patient continues to improve clinically over the weekend can go home with [facility] Plan: CVA with left sided weakness and ataxia -Cannot have MRI due to pacemaker -Neurology following, bubble study pending -Currently ambulating with min assist, ADLs min assist- previously independent -CTA head and neck showed: widely patent vertebral and carotid arteries of the neck. Variant anatomy of the aortic arch. CTA of head showed no large vessel intracranial arterial occlusion, significant stenosis or aneurysmal change. -dual antiplatelet medication with Brilinta and aspirin. Therapy reviewed- patient is min A 24 feet RW, min A for ADLs, having severe ataxia which puts her at increased risk of fall. -Recommend IPR for further therapy as patient is below baseline function due to CVA #Acute left maxillary and sphenoid sinuses noted on CT. #Hypertension #Mild to moderate alcohol consumption
--- NOTE | 2024-03-19 12:25 | P.PN ---
Subjective Progress Note Date: 03/18/24 Patient was seen for a follow-up. Patient feels that she is a lot worse today. She has been noticing some sinus drainage. In the middle of the night she was getting ready to go to the bathroom but the room started spinning. She started using walker, felt will fall. She is noticing some pain behind the left eye, which is worse with light. Right arm feels cold. She feels some slurred speech. She has hard time walking. She is not back to wheelchair although she was walking with walker yesterday. Physical therapy, patient was able to walk with a therapist in the hallway, but today barely able to walk to the door. Patient has history of breast implant therefore was not able to have MRI previ ously at [facility] (even before she had undergone pacemaker placement). Patient states that when she was in her 30s, she lost 100 pounds over 1 year. This was accomplished without any surgery, without medication only by decrease in the nutritional intake. She used to weigh 300 pounds and then came down to 160. She does not take any vitamins. Objective - Vital Signs Vital signs: Vital Signs Temp 98.5 F 03/18/24 15:48 Pulse 66 03/18/24 15:48 Resp 16 03/18/24 15:48 BP 105/68 03/18/24 15:48 Pulse Ox 98 03/18/24 15:48 FiO2 Intake & Output 03/17/24 03/18/24 03/18/24 18:59 06:59 18:59 Intake Total 900 10 180 Balance 900 10 180 Intake: IV 10 0.9 10 Oral 900 180 Other: Voiding Method Toilet Toilet Toilet # Voids 2 1 2 - Exam Mental status, speech and language functions are normal. Cranial nerves si gnificant for vertical upbeat nystagmus, which is present somewhat more in the primary gaze and looking up and down. It is not as prominent in the lateral gaze. Pupils are equal, round and reacting, visual jackson are full, face is symmetric. Tongue protrudes to midline. Palatal elevation is normal. On muscle strength testing there is no pronator drift and the strength is normal in arms and legs. Deep tendon reflexes are (right/left) biceps 2/1+, brachioradialis 2/1+, knees 2/2, ankles 1/1 and plantars are probable upgoing bilaterally. Patient has ataxia in the lower extremities for [id number] testing bilaterally, moderately. She is very tremulous possible mildly ataxic in the upper extremities. - Labs CBC & Chem 7: 03/19/24 07:10 03/19/24 07:10 Labs: Abnormal Lab Results - Last 24 Hours (Table) 03/17/24 03/17/24 03/18/24 Range/Units 08:13 15:13 08:14 WBC 10.8 H (3.8-10.6) k/uL MCHC 30.6 L (31.0-37.0) g/dL Neutrophils # 9.3 H (1.3-7.7) k/uL Lymphocytes # 0.9 L (1.0-4.8) k/uL ESR 47 H (0-30) mm/Hr Sodium (137-145) mmol/L Glucose (74-99) mg/dL C-Reactive Protein 1.30 H (0.00-0.80) mg/dL 03/18/24 Range/Units 08:14 WBC (3.8-10.6) k/uL MCHC (31.0-37.0) g/dL Neutrophils # (1.3-7.7) k/uL Lymphocytes # (1.0-4.8) k/uL ESR (0-30) mm/Hr Sodium 133 L (137-145) mmol/L Glucose 163 H (74-99) mg/dL C-Reactive Protein (0.00-0.80) mg/dL Assessment and Plan Assessment: * Acute onset of vertigo with upbeat nystagmus, left hand numbness. Rule out stroke/TIA versus vestibular dysfunction from sinusitis. Patient not a candidate for tPA, as she came outside the window for tPA. No large vessel occlusion noted. * Acute left maxillary and sphenoid sinuses noted on CT. * Vitamin B12 deficiency * Hypertension * Mild to moderate alcohol consumption * Reflux Plan: Patient has recurrence of vertigo, and feels her balance has got worse. Patient continues to have upbeat nystagmus, and bilateral ataxia. Exact cause of cerebellar ataxia uncertain. Patient cannot have MRI of the brain because of presence of pacemaker. Repeat CT head 03/18/2024 revealed no acute intracranial process. Evidence of old lacunar infarct in the left medial basal ganglia on still present. I personally reviewed CT head agree with the findings. 2-D echo revealed normal left ventricular size and systolic function EF 60 to 65%. Mildly increased septal wall thickness. Mildly increased posterior wall thickness. No obvious regional wall motion abnormalities. Normal left atrial size. Minimal mitral and tricuspid regurgitation. No pulmonary hypertension CTA head and neck showed: widely patent vertebral and carotid arteries of the neck. Variant anatomy of the aortic arch. CTA of head showed no large vessel intracranial arterial occlusion, significant stenosis or aneurysmal change. Patient has left maxillary and sphenoid sinusitis. Patient on ceftriaxone. Fasting a.m. lipid panel cholesterol 183, LDL 115, HDL 50, triglycerides 88. Start Lipitor 40 mg daily. Hemoglobin A1c 5.4 Thiamine, B12 198, folate 8.2, TSH normal 0.96. Patient has vitamin B12 deficiency. Patient will be started on B12 injections. Patient will receive total of 3 injections (once daily). Patient's folic acid is also borderline, we will start folic acid 1 mg daily. Rheumatoid factor negative, REANNA negative, RPR negative. Patient will undergo detailed blood testing including zinc, copper, MMA, B6, vitamin E. We will also check paraneoplastic panel including anti-Hu, anti-Yo and anti-Ri antibodies. Optimize control of blood pressure. Her blood pressure has normalized on its own. Not on any blood pressure medication. Patient is not behaving like acute stroke. She has bilateral symptoms. CT head showed no stroke. We will stop Brilinta. Continue aspirin 81 mg. Patient may need lumbar puncture. Telemetry monitoring rule out any arrhythmia PT, OT. Speech therapy has cleared. DVT prophylaxis: Heparin 5000 units subcu every 8 hours
[2024-03-19] MEDS: TICAGRELOR 90 MG TAB PO SCH (20:49)
--- NOTE | 2024-03-20 01:11 | PN ---
PROGRESS NOTE DATE OF SERVICE: 03/19/2024 SUBJECTIVE: This is a 58-year-old woman, who was admitted with left-sided gait dysfunction, features of TIA, is being closely monitored at this time. Dr. Solorio is following the patient closely. Recommending a lumbar puncture. No chest pain. No palpitations. No fever. PHYSICAL EXAMINATION: VITAL SIGNS: Pulse is 65, blood pressure 140/73, respirations 18. CHEST: Clear to auscultation. CARDIOVASCULAR: S1, S2. ABDOMEN: Soft. NERVOUS SYSTEM: Nystagmus and opsoclonus movements present. LABORATORY DATA: Reviewed. ASSESSMENT: 1. Unsteady gait, vertigo, left-sided numbness, slurred speech and visual difficulties, possible acute transient ischemic attack, rule out acute stroke. 2. 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 3. Old lateral infarct in the left basal ganglia. 4. Pacemaker. 5. Very brief episodes of atrial fibrillation last year and in the pacemaker interrogation. 6. Hypertension. 7. Sinusitis in the CT scan, on empiric antibiotics. RECOMMENDATIONS AND DISCUSSION: Recommend to continue current management and continue symptomatic treatment. Continue with rest of medications. PT, OT evaluation, possible inpatient rehab. Otherwise, I would also recommend a lumbar puncture. MMODL / IJN: [id number] /
--- NOTE | 2024-03-20 11:03 | P.PN ---
Subjective Progress Note Date: 03/19/24 03/19/2024: Patient was seen for a follow-up. Patient states that she has developed some altered temperature sensation in the right upper extremity since Thursday. She continues to have numbness and tingling of the left upper extremity. Overall she feels same as yesterday, no change. She feels slightly more focused when looking. 03/18/2024: Patient was seen for a follow-up. Patient feels that she is a lot worse today. She has been noticing some sinus drainage. In the middle of the night she was getting ready to go to the bathroom but the room started spinning. She started using walker, felt will fall. She is noticing some pain behind the left eye, which is worse with light. Right arm feels cold. She feels some slurred speech. She has hard time walking. She is not back to wheelchair although she was walking with walker yesterday. Physical therapy, patient was able to walk with a therapist in the hallway, but today barely able to walk to the door. Patient has history of breast implant therefore was not able to have MRI previously at [facility] (even before she had undergone pacemaker placement). Patient states that when she was in her 30s, she lost 100 pounds over 1 year. This was accomplished without any surgery, without medication only by decrease in the nutritional intake. She used to weigh 300 pounds and then came down to 160. She does not take any vitamins. Objective - Vital Signs Vital signs: Vital Signs Temp 98.1 F 03/19/24 12:00 Pulse 68 03/19/24 12:00 Resp 16 03/19/24 12:00 BP 116/70 03/19/24 12:00 Pulse Ox 98 03/19/24 12:00 FiO2 Intake & Output 03/18/24 03/19/24 03/19/24 18:59 06:59 18:59 Intake Total 180 118 Balance 180 118 Intake: Oral 180 118 Other: Voiding Method Toilet Toilet # Voids 2 1 - Exam Mental status, speech and language functions are normal. Cranial nerves significant for vertical upbeat nystagmus, which is present somewhat more in the primary gaze and looking up and down (worst looking down). It is not as prominent in the lateral gaze. Pupils are equal, round and reacting, visual jackson are full, face is symmetric. Tongue protrudes to midline. Palatal elevation is normal. On muscle strength testing there is no pronator drift and the strength is normal in arms and legs. Deep tendon reflexes are (right/left) biceps 2/1+, brachioradialis 2/1+, knees 2/2, ankles 1/1 and plantars are probable upgoing bilaterally. Sensory examination revealed decreased temperature sensation in the right arm and right leg whereas she has numbness of the left upper extremity. She has crossed findings suggestive of brainstem dysfunction. On today's examination, it appears patient has ataxia for the left upper and the left lower extremity. No ataxia on the right side. - Labs CBC & Chem 7: 03/19/24 07:10 03/19/24 07:10 Labs: Abnormal Lab Results - Last 24 Hours (Table) 03/19/24 Range/Units 07:10 Sodium 135 L (137-145) mmol/L Chloride 109 H (98-107) mmol/L Assessment and Plan Assessment: * Acute onset of vertigo with upbeat nystagmus, left hand numbness. Patient has crossed sensory findings with decreased temperature on the right side, and light touch decreased on the left side. This is suggestive of brainstem dysfunction. Probable due to small lacunar CVA in the brainstem. Patient not a candidate for tPA, as she came outside the window for tPA. No large vessel occlusion noted. * Acute left maxillary and sphenoid sinuses noted on CT. * Vitamin B12 deficiency * Hypertension * Hyperlipidemia * Mild to moderate alcohol consumption * Reflux Plan: Patient continues to have upbeat nystagmus, ataxia now noticeable more on the left as compared to the right. Also has crossed sensory findings. All these symptoms are suggestive of brainstem dysfunction, likely small CVA in lacunar distribution, not visible on CT. Patient will be resumed on Brilinta 90 mg twice a day and continue aspirin 81 mg daily. Patient cannot have MRI of the brain because of presence of pacemaker. Repeat CT head 03/18/2024 revealed no acute intracranial process. Evidence of old lacunar infarct in the left medial basal ganglion still present. I personally reviewed CT head agree with the findings. 2-D echo revealed normal left ventricular size and systolic function EF 60 to 65%. Mildly increased septal wall thickness. Mildly increased posterior wall thickness. No obvious regional wall motion abnormalities. Normal left atrial size. Minimal mitral and tricuspid regurgitation. No pulmonary hypertension CTA head and neck showed: widely patent vertebral and carotid arteries of the neck. Variant anatomy of the aortic arch. CTA of head showed no large vessel intracranial arterial occlusion, significant stenosis or aneurysmal change. Patient has left maxillary and sphenoid sinusitis. Patient on ceftriaxone. Will discontinue, as patient has received for 3 days. Fasting a.m. lipid panel cholesterol 183, LDL 115, HDL 50, triglycerides 88. Start Lipitor 40 mg daily. Hemoglobin A1c 5.4 Thiamine, B12 198, folate 8.2, TSH normal 0.96. Patient has vitamin B12 deficiency. Patient will be started on B12 injections. Patient will receive total of 3 injections (once daily). Patient's folic acid is also borderline, we will start folic acid 1 mg daily. Rheumatoid factor negative, REANNA negative, RPR negative. Patient will undergo detailed blood testing including zinc, copper, MMA, B6, vi tamin E. We will also check paraneoplastic panel including anti-Hu, anti-Yo and anti-Ri antibodies. Optimize control of blood pressure. Her blood pressure has normalized on its own. Not on any blood pressure medication. Telemetry monitoring rule out any arrhythmia PT, OT. Speech therapy has cleared. DVT prophylaxis: Heparin 5000 units subcu every 8 hours Discussed with primary physician in detail, and agree with the above management.
[2024-03-20] MEDS: CYANOCOBALAMIN 1,000 MCG/ML 1 ML VIAL IM ONE (12:49)
[2024-03-20] MEDS: CYANOCOBALAMIN 500 MCG TAB PO SCH (12:50)
--- NOTE | 2024-03-20 16:05 | CT ---
EXAMINATION TYPE: CT brain wo con CT DLP: 1185 mGycm, Automated exposure control for dose reduction was used. DATE OF EXAM: 03/20/2024 3:44 PM COMPARISON: 03/20/2024, 03/18/2024. CLINICAL INDICATION:Female, 58 years old with history of Followup, ?brainstem stroke, f/u cva TECHNIQUE: Brain: Axial CT images of the brain were obtained with coronal and sagittal reformats created and rev iewed. Contrast used: None. Oral contrast used: None. FINDINGS: Brain: Extra-axial spaces: No abnormal extra-axial fluid collections. Ventricular system: Within normal limits Cerebral parenchyma: No acute intraparenchymal hemorrhage or mass effect. The mahoney-white junction is well differentiated. Cerebellum: Unremarkable. Mass effect: No evidence of midline shift. Intracranial vasculature: Atherosclerotic calcifications of the intracranial vessels. Soft tissues: Normal. Calvarium/osseous structures: No depressed skull fracture. Paranasal sinuses and mastoid air cells: Mild scattered paranasal sinus disease. Visualized orbits: Orbital contents are intact. IMPRESSION: No significant change from prior. No evidence for brainstem stroke. MRI is more sensitive for evaluat ion of strokes.
--- NOTE | 2024-03-20 16:10 | CT ---
EXAMINATION TYPE: CT cervical spine without contrast. CT thoracic spine without contrast. CT lumbar spine without contrast CT DLP: 2571 mGycm, Automated exposure control for dose reduction was used. DATE OF EXAM: 03/20/2024 3:53 PM CLINICAL INDICATION:Female, 58 years old with history of numbness and weakness; weakness, recent cva COMPARISON: None TECHNIQUE: Axial images of the thoracic and cervical, thoracic and lumbar spine were obtained without contrast. Coronal and sagittal reformats were performed. 3-D reformats of the bones were created on a separate workstation and submitted for review. CT Contrast: Contrast used: mL of , none. Oral contrast used: none. FINDINGS: Alignment: There are 5 lumbar type vertebral bodies within normal alignment. Bone: No evidence of fracture is identified. Multilevel mild degeneration with osteophyte formation and facet joint arthropathy. Discs: T12-L1: No spinal canal or neural foraminal stenosis is identified. L1-L2: No spinal canal or neural foraminal stenosis is identified. L2-L3: No spinal canal or neural foraminal stenosis is identified. L3-L4: No spinal canal or neural foraminal stenosis is identified. L4-L5: No spinal canal or neural foraminal stenosis is identified. L5-S1: No spinal canal or neural foraminal stenosis is identified. Other: Cardiac conduction leads visualized in the nerve right right atrium. Scattered colonic diverti cula. Nonobstructing left renal calculi measuring up to 3 mm no right renal calculi. No left obstruct noel uropathy. IMPRESSION: 1. No evidence of fracture of the lumbar spine. 2. Mild multilevel degeneration changes without significant spinal canal or neural foraminal stenosi s
--- NOTE | 2024-03-21 00:29 | P.PN ---
Subjective Progress Note Date: 03/20/24 03/20/2024: Patient was seen for a follow-up. Patient's symptoms remains unchanged. Continues to have numbness of the left hand, and decreased temperature sensation on the right side, feels cold. 03/19/2024: Patient was seen for a follow-up. Patient states that she has developed some altered temperature sensation in the right upper extremity since Thursday. She continues to have numbness and tingling of the left upper extremity. Overall she feels same as yesterday, no change. She feels slightly more focused when looking. 03/18/2024: Patient was seen for a follow-up. Patient feels that she is a lot worse today. She has been noticing some sinus drainage. In the middle of the night she was getting ready to go to the bathroom but the room started spinning. She started using walker, felt will fall. She is noticing some pain behind the left eye, which is worse with light. Right arm feels cold. She feels some slurred speech. She has hard time walking. She is not back to wheelchair although she was walking with walker yesterday. Physical therapy, patient was able to walk with a therapist in the hallway, but today barely able to walk to the door. Patient has history of breast implant therefore was not able to have MRI previously at [facility] (even before she had undergone pacemaker placement). Patient states that when she was in her 30s, she lost 100 pounds over 1 year. This was accomplished without any surgery, without medication only by decrease in the nutritional intake. She used to weigh 300 pounds and then came down to 160. She does not take any vitamins. Objective - Vital Signs Vital signs: Vital Signs Temp 98.5 F 03/20/24 14:27 Pulse 86 03/20/24 14:27 Resp 18 03/20/24 14:27 BP 113/73 03/20/24 14:27 Pulse Ox 97 03/20/24 14:27 FiO2 Intake & Output 03/19/24 03/20/24 03/20/24 18:59 06:59 18:59 Intake Total 236 598 Balance 236 598 Intake: Oral 236 598 Other: Voiding Method Toilet # Voids 1 - Exam Mental status, speech and language functions are normal. Cranial nerves significant for vertical upbeat nystagmus, which is present somewhat more in the primary gaze and looking up and down (worst looking down). It is not as prominent in the lateral gaze. Pupils are equal, round and reacting, visual jackson are full, face is symmetric. Tongue protrudes to midline. Palatal elevation is normal. On muscle strength testing there is no pronator drift and the strength is normal in arms and legs. Deep tendon reflexes are (right/left) biceps 2/2, brachioradialis 2/2, knees 1+2/1+2, ankles 1+/1+ and plantars are probable upgoing bilaterally. Sensory examination revealed decreased pinprick and temperature sensation in the right arm and right leg. Patient has numbness and tingling of the left hand for fine touch. She has crossed sensory findings suggestive of brainstem dysfunction. Cerebellar functions revealed ataxia for the left upper and the left lower extremity. No ataxia on the right side. - Labs CBC & Chem 7: 03/19/24 07:10 03/19/24 07:10 Assessment and Plan Assessment: * Acute onset of vertigo with upbeat nystagmus, left hand numbness. Patient has crossed sensory findings with decreased temperature on the right side, and light touch decreased on the left side. Patient also has ataxia on the left side. Repeat CT head performed revealed probable right medial pontine ischemic stroke. Patient not a candidate for tPA, as she came outside the window for tPA. No large vessel occlusion noted. * Acute left maxillary and sphenoid sinuses noted on CT. * Vitamin B12 deficiency * Hypertension * Hyperlipidemia * Mild to moderate alcohol consumption * Reflux Plan: Patient underwent repeat CT head today. It was reported as no change from prior. No evidence of brainstem stroke. On my review, there appeared low- density area in the right ricky, possibly reflecting lacunar infarct. Not def initely seen on 03/18/2024. Continue Brilinta 90 mg twice a day and continue aspirin [address] of the cervical, thoracic and lumbar spine initiated by primary physician revealed no evidence of fracture of the lumbar spine. Mild multilevel degeneration changes without significant spinal canal or neural foraminal stenosis. Patient cannot have MRI of the brain because of presence of pacemaker. 2-D echo revealed normal left ventricular size and systolic function EF 60 to 65%. Mildly increased septal wall thickness. Mildly increased posterior wall thickness. No obvious regional wall motion abnormalities. Normal left atrial size. Minimal mitral and tricuspid regurgitation. No pulmonary hypertension CTA head and neck showed: widely patent vertebral and carotid arteries of the ne ck. Variant anatomy of the aortic arch. CTA of head showed no large vessel intracranial arterial occlusion, significant stenosis or aneurysmal change. Patient has left maxillary and sphenoid sinusitis. Patient on ceftriaxone. Will discontinue, as patient has received for 3 days. Fasting a.m. lipid panel cholesterol 183, LDL 115, HDL 50, triglycerides 88. Start Lipitor 40 mg daily. Hemoglobin A1c 5.4 Thiamine, B12 198, folate 8.2, TSH normal 0.96. Patient has vitamin B12 deficiency. Patient will be started on B12 injections. Patient will receive total of 3 injections (once daily). Patient's folic acid is also borderline, we will start folic acid 1 mg daily. Rheumatoid factor negative, REANNA negative, RPR negative. Patient will undergo detailed blood testing including zinc, copper, MMA, B6, vitamin E. We will also check paraneoplastic panel including anti-Hu, anti-Yo and anti-Ri antibodies. Optimize control of blood pressure. Her blood pressure has normalized on its own. Not on any blood pressure medication. Telemetry monitoring rule out any arrhythmia PT, OT. Speech therapy has cleared. 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 Dr. Donny Juan to resume neurology service in the morning.
--- NOTE | 2024-03-21 03:29 | PN ---
PROGRESS NOTE DATE OF SERVICE: 03/20/2024 SUBJECTIVE: This is a 58-year-old woman who was admitted with unsteady gait, vertigo, and numbness, is being closely monitored at this time. The patient has severe ataxia. Dr. Solorio is following the patient closely. I had detailed discussion with her son yesterday. Lumbar puncture could not be done at this time because of antiplatelet agents. MRI also could not be done because of the patient's breast implant/pacemaker. The patient was closely monitored. CT of the brain which was done on March 18, which I reviewed personally showed no acute abnormality. PAST MEDICAL HISTORY: Reviewed. REVIEW OF SYSTEMS: A 14-point review is negative except as mentioned above. CURRENT MEDICATIONS: Reviewed include Brilinta, dose and rest of medications noted. OBJECTIVE: VITAL SIGNS: Pulse 97, blood pressure 170/70, respirations 18. HEENT: Conjunctivae normal. NECK: No jugular venous distention. CARDIOVASCULAR: S1, S2. RESPIRATIONS: Diminished at the bases, few scattered rhonchi. ABDOMEN: Soft. NERVOUS SYSTEM: No focal deficits. LABORATORY DATA: Reviewed. Sedimentation rate is 47, REANNA is negative. ASSESSMENT: 1. Unsteady gait, vertigo, left-sided numbness, slurred speech difficulty, possible acute TIA versus possible stroke, possible brainstem stroke per Neurology. 2. 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 3. Old lateral lacunar infarct in the left basal ganglia. 4. Pacemaker. 5. Very brief episodes of atrial fibrillation last year in the pacemaker interrogation. 6. Hypertension. 7. Sinusitis on the CT scan was on empiric antibiotics. RECOMMENDATIONS: Recommended to continue current medications, symptomatic treatment. Otherwise, continue the antiplatelet agents. I would also recommend CT scan of the cervical spine and thoracic spine also to complete the workup. Otherwise, continue to monitor. Guarded prognosis because of multiple complex medical conditions, further recommendations to follow. See orders for details. MMODL / IJN: [id number] / MTDD
[2024-03-21 05:53] LABS: African American GFR (CKD) 82 (>60 ml/min/1.73 sqM); Anion Gap 2 mmol/L; Blood Urea Nitrogen 14 mg/dL (7-17); Calcium 9.3 mg/dL (8.4-10.2); Carbon Dioxide 27 mmol/L (22-30); Chloride 106 mmol/L (98-107); Glucose 80 mg/dL (74-99); Non-African American GFR(CKD) 71 (>60 ml/min/1.73 sqM); Potassium 4.3 mmol/L (3.5-5.1); Sodium 135 mmol/L (137-145)
[2024-03-21 06:27] LABS: Basophils # (A) 0.1 k/uL (0-0.2); Basophils % (A) 1 %; Eosinophils # (A) 0.4 k/uL (0-0.7); Eosinophils % (A) 4 %; HCT 39.4 % (34.0-46.0); HGB 12.6 gm/dL (11.4-16.0); Lymphocytes % (A) 22 %; MCH 28.9 pg (25.0-35.0); MCV 90.4 fL (80.0-100.0); Mean Platelet Volume 7.4; Monocytes # (A) 0.6 k/uL (0-1.0); Monocytes % (A) 6 %; Neutrophils # (A) 6.1 k/uL (1.3-7.7); Neutrophils % (A) 66 %; Platelet Count 414 k/uL (150-450); RBC 4.36 m/uL (3.80-5.40); RDW 13.8 % (11.5-15.5); WBC 9.2 k/uL (3.8-10.6)
[2024-03-21 13:39] LABS: Zinc, Serum 46 ug/dL (60-130)
--- NOTE | 2024-03-21 21:51 | PN ---
PROGRESS NOTE DATE OF SERVICE: 03/21/2024 SUBJECTIVE: This is a 58-year-old woman, who was admitted with unsteady gait, vertigo, numbness, possibly had a brainstem stroke. The patient also had significant nystagmus. A repeat CAT scan of the brain done today, which I reviewed personally showed no significant abnormality. A lumbar/thoracic spine also showed no fracture, and multilevel DJD without significant spinal canal neuroforaminal stenosis also noted. PAST MEDICAL HISTORY: Reviewed. REVIEW OF SYSTEMS: A 14-point review is negative except as mentioned earlier. CURRENT MEDICATIONS: Reviewed include aspirin. Doses and rest of medications noted. PHYSICAL EXAMINATION: VITAL SIGNS: Pulse is 73, blood pressure 120/70, respirations 16. HEENT: Conjunctivae normal. NECK: No JVD. CARDIOVASCULAR: S1, S2. RESPIRATIONS: Breath sounds diminished at the bases. ABDOMEN: Soft. NERVOUS SYSTEM: Diffusely weak, ataxic. Nystagmus also present. LABORATORY DATA: Sodium 135. ASSESSMENT: 1. Unsteady gait, vertigo, left-sided numbness, slurring of speech difficulty, possible acute transient ischemic attack versus possible stroke, possible brainstem stroke per Neurology. 2. 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 3. Old lacunar infarct in the left basal ganglia. 4. Pacemaker. 5. Very brief episodes of atrial fibrillation last year and in the pacemaker interrogation. 6. Hypertension. 7. Sinusitis on the CT scan, was on empiric antibiotics. RECOMMENDATIONS: Recommend to continue current management. Continue symptomatic treatment. PT, OT evaluation, antiplatelet agents, Lipitor. CBC, BMP. Closely follow with Neurology. The patient will require MRI possibly outpatient per Neurology. Once again, the prognosis is extremely guarded because of above-mentioned multiple medical issues. Discussed with the patient's family. Further recommendations to follow. MMODL / IJN: [id number] /
[2024-03-22 09:21] LABS: Basophils # (A) 0.1 k/uL (0-0.2); Basophils % (A) 1 %; Eosinophils # (A) 0.4 k/uL (0-0.7); Eosinophils % (A) 4 %; HCT 40.8 % (34.0-46.0); HGB 12.5 gm/dL (11.4-16.0); Lymphocytes # (A) 1.7 k/uL (1.0-4.8); Lymphocytes % (A) 18 %; MCHC 30.7 g/dL (31.0-37.0); MCV 91.3 fL (80.0-100.0); Monocytes # (A) 0.6 k/uL (0-1.0); Monocytes % (A) 7 %; Neutrophils # (A) 6.5 k/uL (1.3-7.7); Neutrophils % (A) 70 %; Platelet Count 437 k/uL (150-450); RBC 4.47 m/uL (3.80-5.40); RDW 13.9 % (11.5-15.5); WBC 9.3 k/uL (3.8-10.6)
[2024-03-22 09:27] LABS: African American GFR (CKD) 86 (>60 ml/min/1.73 sqM); Anion Gap 3 mmol/L; Blood Urea Nitrogen 12 mg/dL (7-17); Calcium 9.4 mg/dL (8.4-10.2); Carbon Dioxide 27 mmol/L (22-30); Chloride 107 mmol/L (98-107); Glucose 83 mg/dL (74-99); Non-African American GFR(CKD) 75 (>60 ml/min/1.73 sqM); Potassium 4.4 mmol/L (3.5-5.1); Sodium 137 mmol/L (137-145)
[2024-03-22 13:08] VITALS: BP 128/85; PULSE 65; RESP 20; TEMP 97.8
[2024-03-22] MEDS: ZINC SULFATE 220 MG CAP PO SCH (13:56)
--- NOTE | 2024-03-22 14:01 | P.DS ---
Providers Date of admission: 03/16/24 10:37 Attending physician: Kristie Rea Consults: 03/16/24 10:38 Consult Physician Routine Consulting Provider: Donny Juan Consult Reason/Comments: CVA Do you want consulting provider notified?: Yes 03/16/24 13:15 Consult Physician Routine Consulting Provider: Tommy Chopra Consult Reason/Comments: rbbb Do you want consulting provider notified?: Yes 03/17/24 11:18 Consult Physician Routine Consulting Provider: Zenon Francois Consult Reason/Comments: eval for IPR Do you want consulting provider notified?: Yes Primary care physician: Stated None Hospital Course: Diagnoses: Acute CVA/with acute onset vertigo with left hand numbness and nystagmus Vitamin B12 deficiency Brief period of A-fib, evaluated by tooth cutter clutch. No need for anticoagulation c urrently Low zinc level Hospital course: This is a pleasant 58 years old female with past medical history of medical problems as below. Admitted because of unsteady gait, vertigo and numbness in her left hand with suspicion of nystagmus. Acute stroke versus sinusitis and peripheral reasons or vertigo from vestibular dysfunction is suspected. Patient is evaluated by neurologist. She had CT of the brain x 2 showing no acute process although there was some suspicion was of blindness from stroke. Syphilis antibodies were negative Rheumatoid factor was less than 15, REANNA screen is negative. Zinc is low at 46 B12 is low at 198 TSH is within the reference range. ESR slightly elevated at 47 CT of the cervical thoracic and lumbar spine showing no fracture with degenerative disc disease Ejection fraction is 60 to 65% on echocardiogram Carotid duplex is negative for acute process Chest x-ray is negative for acute process CTA of the head and neck showing no significant aneurysm or dissection Further workup requested and is pending including tumor markers, Anti-Hu, Anti- Yo, Anti-Ri d is pending Patient fully awake and oriented. Denies any other new complaint, no new w eakness or numbness. No chest pain or dyspnea. Patient cleared for discharge by neurologist, with no further workup was requested Problems and management plan were discussed with the patient and he verbalized understanding and acceptance Patient was found stable and can be discharged IPR in guarded prognosis however he needs follow-up as an outpatient. Patient was instructed to follow up with PCP within one week and patient agrees Patient was instructed to follow-up with tooth cutter clutch Dr. Marquez in 4 weeks Patient was instructed to follow-up with a neurologist Dr. Clayton or Dr. Knapp in 2 weeks Patient is going to be discharged to inpatient rehab Physical exam Gen: patient is a AAOx3, no distress CVS: S1-S2, RRR, no murmur Lungs: B/L CTA, no wheezing Abdomen: soft, no distention, no tenderness, positive bowel sounds Extremity: no leg edema or induration neuro: Cranial nerves are grossly intact. Sensation intact. Motor 5/5. Meningeal signs absent Time spent more than 35 minutes Patient Condition at Discharge: Stable Plan - Discharge Summary New Discharge Prescriptions: No Action Loratadine [Claritin] 10 mg PO DAILY Famotidine [Pepcid] 20 mg PO BID Calcium Carbonate [Tums] 500 mg PO TID PRN PRN Reason: Gi Upset Discharge Medication List Calcium Carbonate [Tums] 500 mg PO TID PRN 03/16/24 [History] Famotidine [Pepcid] 20 mg PO BID 03/16/24 [History] Loratadine [Claritin] 10 mg PO DAILY 03/16/24 [History] Follow up Appointment(s)/Referral(s): Keron Smith MD [STAFF PHYSICIAN] - 4 Weeks (Follow-up with Dr. Smith in 4 weeks if patient chooses to do so) None,Stated [Primary Care Provider] - 1-2 days
--- NOTE | 2024-03-22 17:40 | P.PN ---
Subjective Progress Note Date: 03/22/24 I am seeing the patient for the first time during this admission. Please refer to Dr. Marinelli's notes for further details. Patient is accompanied with her and she stating that she is having abnormal eye movement right sided numbness since this past Thursday or . It seems that there is a suspicion that the patient has repeated CT of the head and showed probable right medial pontine ischemic stroke. Unable to obtain MRI of the brain since the patient has a pacemaker. Objective - Vital Signs Vital signs: Vital Signs Temp 97.8 F 03/22/24 12:58 Pulse 65 03/22/24 12:58 Resp 20 03/22/24 12:58 BP 128/85 03/22/24 12:58 Pulse Ox 96 03/22/24 12:58 FiO2 Intake & Output 03/21/24 03/22/24 03/22/24 18:59 06:59 18:59 Intake Total 1320 Balance 1320 Intake: Oral 1320 Other: Voiding Method Toilet # Voids 2 2 - Exam General: Sitting in a chair and is not in acute distress. Neuro: Is awake alert oriented to self place and time. Is following simple commands. No aphasia no neglect. Visual jackson are full to confrontation. Ocular movement is patient has vertical nystagmus predominantly but subtle nystagmus looking to the right as well. No facial weakness. No dysarthria Motor: In all extremities above gravity appears equal. Sensation Normal to touch throughout. - Labs CBC & Chem 7: 03/22/24 08:19 03/22/24 08:19 Labs: Abnormal Lab Results - Last 24 Hours (Table) 03/22/24 Range/Units 08:19 MCHC 30.7 L (31.0-37.0) g/dL Assessment and Plan Assessment: * Acute onset of vertigo with upbeat nystagmus, left hand numbness. Patient has crossed sensory findings with decreased temperature on the right side, and light touch decreased on the left side. Patient also has ataxia on the left side. Repeat CT head performed revealed probable right medial pontine ischemic stroke. Patient not a candidate for IV thrombolytic, as she came outside the window. No large vessel occlusion noted. * Acute left maxillary and sphenoid sinuses noted on CT. * Vitamin B12 deficiency * Hypertension * Hyperlipidemia * Pacemaker * Mild to moderate alcohol consumption * Reflux Plan: Patient underwent repeat CT head. It was reported as no change from prior. No evidence of brainstem stroke.Per Dr. Marinelli, on his review, there appeared low- density area in the right ricky, possibly reflecting lacunar infarct. Not definitely seen on 03/18/2024. I also personally reviewed it and agree with Dr. Marinelli's findings. Continue Brilinta 90 mg twice a day and continue aspirin [address] of the cervical, thoracic and lumbar spine initiated by primary physician revealed no evidence of fracture of the lumbar spine. Mild multilevel degeneration changes without significant spinal canal or neural foraminal stenosis. Patient cannot have MRI of the brain because of presence of pacemaker. Recommend if possible to obtain MRI Brain as outpatient that is MRI compatible. This should be coordinated by her PCP or neurologist. 2-D echo revealed normal left ventricular size and systolic function EF 60 to 65%. Mildly increased septal wall thickness. Mildly increased posterior wall t hickness. No obvious regional wall motion abnormalities. Normal left atrial size. Minimal mitral and tricuspid regurgitation. No pulmonary hypertension CTA head and neck showed: widely patent vertebral and carotid arteries of the neck. Variant anatomy of the aortic arch. CTA of head showed no large vessel intracranial arterial occlusion, significant stenosis or aneurysmal change. Fasting a.m. lipid panel cholesterol 183, LDL 115, HDL 50, triglycerides 88. Start Lipitor 40 mg daily. Hemoglobin A1c 5.4 Thiamine, B12 198, folate 8.2, TSH normal 0.96. Patient has vitamin B12 deficiency. Patient will be started on B12 injections. Patient will receive total of 3 injections (once daily). Patient's folic acid is also borderline, we will start folic acid 1 mg daily. Rheumatoid factor negative, REANNA negative, RPR negative. Zinc: 46 (normal is 60-130) and recommend supplementation. copper, MMA, B6, vitamin E are normal. Pending Vitamin B6 and Paraneoplastic panel including anti-Hu, anti-Yo and ant i-Ri antibodies ordered by Dr. Marinelli Optimize control of blood pressure. Her blood pressure has normalized on its own. Not on any blood pressure medication. Telemetry monitoring rule out any arrhythmia PT, OT. Speech therapy has cleared. DVT prophylaxis: Heparin 5000 units subcu every 8 hours Patient would need follow-up with mortgage servicing specialist Upon discharge, recommend the patient to follow-up with neurologist as outpatient within 2-3 weeks. The plan is discussed with patient and her who is at bedside. Time with Patient: Less than 30
== END 2024-03-22 16:23 | disposition still patient (30) | DRG 66 ==
LOC: EC 09:13 → 2CATHESU 10:37 → 3SCARD 12:05 → 5NMEDONC 03-20 23:16
PROVIDERS: ADMIT Hospitalist; ATTEND Hospitalist
DX: I63.29 Cerebral infarction due to unspecified occlusion or stenosis of other precerebral arteries (principal); I45.10 Unspecified right bundle-branch block; I48.91 Unspecified atrial fibrillation; I44.0 Atrioventricular block, first degree; I65.29 Occlusion and stenosis of unspecified carotid artery; J32.3 Chronic sphenoidal sinusitis; K21.9 Gastro-esophageal reflux disease without esophagitis; R29.704 NIHSS score 4; I10 Essential (primary) hypertension; H55.09 Other forms of nystagmus; E78.5 Hyperlipidemia, unspecified; R27.0 Ataxia, unspecified; R47.81 Slurred speech; R20.0 Anesthesia of skin; E53.8 Deficiency of other specified B group vitamins; Z86.73 Personal history of transient ischemic attack (TIA), and cerebral infarction without residual deficits; Z95.0 Presence of cardiac pacemaker; Z98.82 Breast implant status; Z79.82 Long term (current) use of aspirin
CPT/HCPCS: 36415; 70450; 70496; 70498; 71046; 72125; 72128; 72131; 80048; 80053; 80061; 82390; 82525; 82550; 82607; 82746; 83036; 83921; 84207; 84425; 84443; 84446; 84484; 84630; 85025; 85610; 85652; 85730; 86038; 86140; 86431; 86780; 93005; 93306; 93880; 96372; 99291

== ENCOUNTER → 2024-12-21 | Outpatient (CLI) | payer BC ==
--- NOTE | 2024-12-21 17:28 | MM ---
Reason for Exam: Screening (asymptomatic). Patient History: Menarche at age 10. First Full-Term at age 25. Postmenopausal. Patient has history of breast feeding. Risk Values: Luba 5 year model risk: 1.6%. NCI Lifetime model risk: 7.9%. Prior Study Comparison: No prior studies available for comparison. Tissue Density: There are scattered areas of fibroglandular density. Findings: Analyzed By CAD. Bilateral retropectoral saline implants. Generator device projects over the left pectoralis. A few scattered benign punctate calcifications on the left. There are a number of 5 mm and smaller low-density isodense circumscribed nodules within both breasts. This is an overall benign pattern and six-month follow-up is recommended given the lack of prior comparisons. No suspicious calcification or other discrete abnormality is seen. Overall Assessment: Probably benign, BI-RAD 3 Management: Diagnostic Mammogram of both breasts in 6 months. Patient should continue monthly self-breast exams. A clinical breast exam by your physician is recommended on an annual basis. This exam should not preclude additional follow-up of suspicious palpable abnormalities. Note on Luba scores and lifetime risk: 1. A Luba score greater than 3% is considered moderate risk. If this is the case, consider specialist referral to assess eligibility for a risk reducing agent. 2. If overall lifetime risk for the development of breast cancer is 20% or higher, the patient may qualify for future screening with alternating mammogram and breast MRI. [facility], , 12/21/2024 5:24 PM. Electronically signed and approved by: Radha Cr M.D. Radiologist
== END | disposition home or self-care (01) ==
LOC: RADMAMWWP 12:51
PROVIDERS: ATTEND Family Medicine
DX: Z12.31 Encounter for screening mammogram for malignant neoplasm of breast (principal); R92.323 Mammographic fibroglandular density, bilateral breasts; Z78.0 Asymptomatic menopausal state; Z98.82 Breast implant status
CPT/HCPCS: 77063; 77067